=== PATIENT | male | born 1960 | race Caucasian/White ===

== ENCOUNTER → 2017-11-23 12:00 | Outpatient (CLI) | payer OTHER, MEDICAID, SELFPAY ==
--- NOTE | 2017-11-23 | DI.CT.S_ITS ---
PROCEDURE: CT LUMBAR SPINE WO CON INDICATIONS: LUMBAR DISC HERNIATION TECHNIQUE: Noncontrast 3 mm thick sections acquired from the T12 level to the sacrum. Sagittal and coronal reformats were constructed. For radiation dose reduction, the following was used: automated exposure control. COMPARISON: [facility], CT, THORAX WITH CONTRAST, 11/19/2015, 15:58. FINDINGS: Image quality: Excellent. Bones: There is normal bony alignment. No acute vertebral body compression fractures. No suspicious lytic or blastic bony lesions. Central spinal caliber is of normal overall caliber. No pars defects. T12-L1: Minimal loss of disc height. No central canal or foraminal stenosis. L1-L2: Mild loss of disc height and circumferential disc bulge. Large anterior disc osteophyte complex. Mild hypertrophy of ligamentum flavum. No central canal or foraminal stenosis. L2-L3: Mild loss of disc height. There is diffuse posterior disc bulge. Mild bilateral facet arthropathy and hypertrophy of ligamentum flavum. The central canal is mildly narrowed. Mild bilateral foraminal stenosis. L3-L4: Mild to moderate loss of disc height. There is diffuse posterior disc bulge. Mild bilateral facet arthropathy and hypertrophy of ligamentum flavum. The central canal is mildly narrowed. Mild bilateral foraminal stenosis. L4-L5: Moderate to severe loss of disc height and vacuum phenomenon. There is diffuse posterior disc bulge and disc osteophyte complex. Postsurgical changes related to right hemilaminectomy. The central canal is moderately narrowed. Moderate bilateral foraminal stenosis. L5-S1: Mild to moderate to severe loss of disc height and vacuum phenomenon. There is diffuse posterior disc bulge and disc osteophyte complex. The central canal is mildly narrowed. [id number] bilateral foraminal stenosis. Soft tissues: No retroperitoneal masses or hematomas. Visualized aorta is normal in caliber. Moderate aortic and iliac artery calcification. There are scattered colonic diverticula. IMPRESSION: 1. Multilevel degenerative and postsurgical changes as described. 2. Multilevel central canal stenosis as described. 3. Multilevel foraminal stenosis as described. 4. Diverticulosis. 5. Atherosclerosis. Dictated by: Osman Arizmendi M.D. on 11/23/2017 at 14:54 Approved by: Osman Arizmendi M.D. on 11/23/2017 at 15:08
== END ==
PROVIDERS: Visit Provider Neurological Surgery
DX: M51.26 Other intervertebral disc displacement, lumbar region (principal); M51.36 Other intervertebral disc degeneration, lumbar region; M48.061 Spinal stenosis, lumbar region without neurogenic claudication; K57.90 Diverticulosis of intestine, part unspecified, without perforation or abscess without bleeding; I70.0 Atherosclerosis of aorta; I70.209 Unspecified atherosclerosis of native arteries of extremities, unspecified extremity
CPT/HCPCS: 72131

== ENCOUNTER 2020-12-17 18:13 | Emergency (ER) | payer OTHER, SELFPAY ==
--- NOTE | 2020-12-17 18:19 | ED_ITS ---
HPI - General Adult General Chief complaint: Fall Stated complaint: GLF, hit head Time Seen by Provider: 12/17/20 18:17 Source: patient and EMS Mode of arrival: EMS Limitations: other (Intoxication) History of Present Illness HPI narrative: Patient is a 52-year-old male who is brought in by EMS not on a backboard not in a cervical collar for evaluation of injuries he sustained when he fell off of a ladder. 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 He has had issues with this in the past. He has had back problems for many years and this occa sionally happens to him. He did hit his head. Unsure exactly how far that he fell. He did sustain a cut above his left eye. This was covered with a bandage by EMS. Patient reports no other injuries from the event. He does endorse drinking alcohol. EMS reports that upon their arrival he did have a systolic blood pressure in the 90s and was given fluids and that has improved. Related Data Previous Rx's Medication Instructions Recorded cyclobenzaprine 10 mg tablet 10 mg PO TIDP PRN #14 tab 12/15/16 Allergies Allergy/AdvReac Type Severity Reaction Status Date / Time No Known Drug Allergies Allergy Verified 12/17/20 18:24 Review of Systems Constitutional Constitutional: Denies headache(s) Eyes Comments: No change in vision ENT Ears, Nose, Mouth, and Throat: Denies headache(s) Comments: Cut above left eye Cardiovascular Comments: Patient denies chest pain Respiratory Comments: Denies shortness of breath Gastrointestinal Comments: Denies abdominal pain Musculoskeletal Comments: Denies any arm, leg, pelvis discomfort no neck pain Integumentary/Breasts Comments: Cut above left eye, abrasion to left forearm Neurologic Neurologic: Denies headache(s) Psychiatric Psychiatric: Reports system reviewed and no additional complaints, except as documented Hematologic/Lymphatic On Anticoagulants: No Allergic/Immunologic Allergic/Immunologic: Reports system reviewed and no additional complaints, except as documented Patient History Medical History Hemothorax Rib fractures Sciatica Social History lives independently: Yes Smoking Status: Unknown if ever smoked Exam Initial Vital Signs Initial Vital Signs: Vital Signs Temperature 98.6 F 12/17/20 18:20 Pulse Rate 84 12/17/20 18:20 Respiratory Rate 15 12/17/20 18:20 Blood Pressure 122/82 12/17/20 18:20 Pulse Oximetry 97 12/17/20 18:20 Const General: cooperative, comfortable, well developed and No ill appearing HENMT Head: laceration (Above left eye) Nose: external nose normal, No epistaxis and No nasal discharge Face and sinus: normal facial exam Mouth: oral mucosae normal Teeth and gingiva: dentition normal Throat: posterior oropharynx normal Eyes Pupils: PERRL EOM: EOM intact bilaterally Chest Chest: No crepitus and No tenderness Resp Effort & Inspection: normal respiratory effort Auscultation: clear to auscultation bilaterally Cardio Rate: regular rate Rhythm: regular rhythm GI Inspection: normal to inspection Palpation: soft and No tender Back/Spine/Pelvis Cervical Spine: No cervical spinal tenderness Thoracic/Lumbar Spine: No thoracic spinal tenderness and No lumbar spinal tenderness Skin Other: Patient with a 3 cm laceration above the left eye. Patient also with superficial skin abrasions to the left forearm. Neuro General: patient alert, patient awake, moves all extremities and not confused Speech: other (Somewhat slurred speech) Extrem General: normal to inspection Other: Full range of motion of shoulders elbows wrist in the bilateral upper extremities. Pelvis is stable. Bilateral lower extremities unremarkable. Psych Appearance: grossly normal and well kempt Procedures Laceration Repair Laceration 1: Site: face Side (If applicable): left Size (cm): 3 Description: irregular Depth: simple, single layer Local Anesthetic: lidocaine 1% and with bicarb Amount of anesthesia used (mL): 5 Pre-repair: wound explored and deep structures intact Skin layer closed with: other (Chromic) Size (cm): 4-0 Number of sutures: 6 Technique: simple, interrupted Scores GCS Gia coma scale eye opening: Spontaneous Sublimity coma scale verbal response: Orientated Gia coma scale motor response: Obey commands Gia coma scale total score: 15 Nexus Score for C-Spine Focal Neurologic deficit present: No Midline spinal tenderness present: No Altered level of conciousness present: No Intoxication present: Yes Distracting Injury Present: No Nexus Criteria for C-spine: 1 Course Orders Ordered: ED Orders 12/17/20 18:02 Complete Blood Count AUTO DIFF Stat Comprehensive Metabolic Panel Stat Lipase Stat 08/05/21 18:18 CT head/brain wo con Stat 12/17/20 18:20 CT cervical spine wo con Stat 12/17/20 18:21 XR chest 1V Stat Discontinued Medications Bacitracin (Bacitracin Oint 0.9 Gm Pckt) 1 applic TOP NOW ONE Stop: 12/17/20 18:18 Last Admin: 12/17/20 18:40 Dose: 1 applic Documented by: STEPHANIE Diphtheria/Tetanus/Acell Pertussis (Tet,Diph,Pertuss(Acell),Vac/Pf 0.5 Ml Syringe) 0.5 ml IM .ONCE ONE Stop: 12/17/20 18:28 Last Admin: 12/17/20 18:40 Dose: 0.5 ml Documented by: STEPHANIE Lidocaine/Sodium Bicarbonate (Lido 1%/Sod Bicarb 8.4% (10ml) 10 Ml Syringe) 10 ml INJ NOW ONE Stop: 12/17/20 18:18 Last Admin: 12/17/20 18:41 Dose: 10 ml Documented by: STEPHANIE Vital Signs Vital signs: Vital Signs - 8 hr 12/17/20 18:20 12/17/20 20:27 Temperature 98.6 F Pulse Rate 84 105 H Respiratory Rate 15 Blood Pressure 122/82 110/63 Pulse Oximetry 97 97 Medical Decision Making Lab Data Lab results reviewed: Yes I reviewed the patient's lab results. Result diagrams: 12/17/20 18:02 12/17/20 18:02 Labs: Lab Results 12/17/20 12/17/20 Range/Units 18:02 18:02 WBC 6.8 (4.5-11.0) X10^3/uL RBC 3.33 L (4.5-5.9) X10^6/uL Hgb 11.1 L (13.5-17.5) g/dL Hct 33.3 L (41-53) % MCV 100.1 H (80-100) fL MCH 33.2 (26-34) PG MCHC 33.2 (30-36) % RDW 14.5 (11.6-14.8) % Plt Count 70 L (150-400) X10^3/uL Neut % (Auto) 35.1 L (50-75) % Lymph % (Auto) 52.7 H (25-40) % Harney % (Auto) 10.4 (3-14) % Eos % (Auto) 1.0 L (2-4) % Baso % (Auto) 0.8 (0-2) % Neut # (Auto) 2400 (0358-9258) /uL Lymph # (Auto) 3600 (4346-9256) /uL Harney # (Auto) 700 (0-900) /uL Eos # (Auto) 100 (0-450) /uL Baso # (Auto) 100 (0-100) /uL Sodium 139 (137-145) mmol/L Potassium 4.5 (3.4-5.1) mmol/L Chloride 101 (98-107) mmol/L Carbon Dioxide 18 L (22-32) mmol/L BUN 19 (9-20) mg/dL Creatinine 1.14 (0.66-1.25) mg/dL Estimated GFR > 60.0 (>60) mL/min BUN/Creatinine Ratio 16.7 (6-22) Glucose 102 H (70-100) mg/dL Calcium 9.6 (8.4-10.2) mg/dL Total Bilirubin 1.3 (0.2-1.3) mg/dL AST 167 H (17-59) IU/L ALT 67 H (<50) IU/L Alkaline Phosphatase 104 (38-126) U/L Total Protein 7.8 (6.3-8.2) g/dL Albumin 4.8 (3.5-5.0) g/dL Globulin 3.0 (1.7-4.1) g/dL Albumin/Globulin Ratio 1.6 (1.0-2.8) Lipase 358 H (23-300) U/L Imaging Data CT scan - head: Radiologist's Impression: [address] [id number] Scan ReportSigned Patient: Dante Luna JMR#: [id number]: 2Acct:[id number]/Sex: 60 / MDate of Service: 12/17/20Loc: EDAccession Number: [id number] Procedure: CT head/brain wo con Ordering Provider: Min Ramirez D.O. PROCEDURE: CT HEAD/BRAIN WO CON INDICATIONS: fall hit head TECHNIQUE: Noncontrast 4.5 mm thick angled axial sections acquired from the foramen magnum to the vertex, with coronal and sagittal reformats. For radiation dose reduction, the following was used: automated exposure control, adjustment of mA and/or kV according to patient size. COMPARISON: None. FINDINGS: Image quality: Excellent. CSF spaces: Basal cisterns are patent. No extra-axial fluid collections. Ventricles are normal in size and shape. Brain: No midline shift. No intracranial masses or hemorrhage. Clayton-white matter interface is normal. Skull and face: Calvarium and visualized facial bones are intact, without suspicious lesions. Sinuses: Visualized sinuses and mastoids are clear. IMPRESSION: No trauma found. Dictated by: Jarvis Cabrera M.D. on 12/17/2020 at 18:41 Approved by: Jarvis Cabrera M.D. on 12/17/2020 at 18:41 CT - cervical spine: Radiologist's Impression: [address] [id number] Scan ReportSigned Patient: Dante Luna R#: [id number]: 2Acct:[id number]/Sex: 60 / MDate of Service: 12/17/20Loc: EDAccession Number: [id number] Procedure: CT cervical spine wo con Ordering Provider: Min Ramirez D.O. PROCEDURE: CT CERVICAL SPINE WO CON INDICATIONS: fall TECHNIQUE: Noncontrast 3 mm thick sections acquired from the skull base to the T4 level. Sagittal and coronal reformats were then constructed. For radiation dose reduction, the following was used: automated exposure control, adjustment of mA and/or kV according to patient size. COMPARISON: [facility], CT, CT HEAD/BRAIN WO CON, 12/17/2020, 18:22. FINDINGS: Image quality: Reduced by persistent patient motion during image acquisition.. Bones: No fractures or dislocations. Visualized superior ribs are intact. Soft tissues: Prevertebral soft tissues are normal in thickness. No paravertebral hematomas. No apical pneumothoraces. IMPRESSION: No CT evidence of trauma found but quality of visualization is limited by persistent patient motion. Depending on the clinical status follow-up by repeat CT or MR scanning may be warranted with spine stabilization until that time. Please correlate clinically. Chronic moderately severe degenerative disc disease over the middle and lower thirds of the cervical spine is superimposed. Dictated by: Jarvis Cabrera M.D. on 12/17/2020 at 18:49 Approved by: Jarvis Cabrera M.D. on 12/17/2020 at 18:51 Chest x-ray: Radiologist's Impression: [place] [id number] [place] [id number] ReportSigned Patient: Dante Luna JMR#: [id number]: 2Acct:[id number]/Sex: 60 / MDate of Service: 12/17/20Loc: EDAccession Number: [id number] Procedure: XR chest 1V Ordering Provider: Min Ramirez D.O. PROCEDURE: XR CHEST 1V INDICATIONS: fall TECHNIQUE: One view of the chest was acquired. COMPARISON: [facility], CHEST 2 VIEW, 11/19/2015, 14:27. [facility], CHEST 2 VIEW, 11/10/2015, 14:21. FINDINGS: Surgical changes and devices: None. Lungs and pleura: Lungs are clear considering reduced inspiratory volume and body habitus.. No pleural effusions or pneumothorax. Mediastinum: Mediastinal contours appear normal. Heart size is normal. Bones and chest wall: No suspicious bony lesions. Overlying soft tissues appear unremarkable. IMPRESSION: No trauma found. Reduced inspiratory volume crowds the bronchovascular markings but no pneumonia or pulmonary contusion is seen. Dictated by: Jarvis Cabrera M.D. on 12/17/2020 at 18:46 Approved by: Jarvis Cabrera M.D. on 12/17/2020 at 18:47 MDM Narrative Medical decision making narrative: A cervical collar was placed the upon arrival secondary to his obvious intoxication. His radiologic studies were subsequently unremarkable. The abrasions on his left forearm the no intervention here in the emergency department. The cut above his left eye was closed as described above. No other injuries were reported by the patient or found on the exam. Patient was given care instructions and return precautions. He expressed understanding and agreement. Discharge Plan Departure Patient Disposition: Home Clinical Impression: Fall from ladder, Laceration of forehead, Abrasion of skin, Alcohol intoxication, Injury of eye, contusion Instructions: Trauma, DI for Laceration Repair Activity Restrictions/Additional Instructions: No driving for the next 24 hours or in the future if you drink alcohol. The stitches that were placed above her left eye are absorbable and should come out within the next 7-10 days. Until then you can shower like normal. You can use soap and water like normal. You can put antibiotic ointment over the area. Also recommend putting antibiotic ointment over the other skin abrasions that you have. I would expect that you develop a black eye over the next couple days as well. Cool compresses over the area will help with this. If you develop any new or worsening symptoms please return to the emergency department for further evaluation. Prescriptions: No Action cyclobenzaprine 10 MG tablet 10 mg PO TIDP PRNQty: 14 RF: 0
[2020-12-17 18:20] VITALS: BP 122/82; PULSE 84; RESP 15; TEMP 37; O2SAT 97; BMI 28.7
[2020-12-17 18:35] LABS: Add Manual Diff / Slide Review NO; Basophils Absolute Auto 100 /uL (0-100); Basophils Percent Auto 0.8 % (0-2); Eosinophils Absolute Auto 100 /uL (0-450); Hematocrit 33.3 % (41-53); Hemoglobin 11.1 g/dL (13.5-17.5); Lymphocytes Absolute Auto 3600 /uL (1100-4500); Lymphocytes Percent Auto 52.7 % (25-40); Mean Corpuscular HGB Conc 33.2 % (30-36); Mean Corpuscular Hemoglobin 33.2 PG (26-34); Mean Corpuscular Volume 100.1 fL (80-100); Monocytes Absolute Auto 700 /uL (0-900); Monocytes Percent Auto 10.4 % (3-14); Neutrophils Absolute Auto 2400 /uL (1500-7000); Neutrophils Percent Auto 35.1 % (50-75); Platelet Count 70 X10^3/uL (150-400); Red Blood Cell Count 3.33 X10^6/uL (4.5-5.9); Red Cell Distribution Width 14.5 % (11.6-14.8); White Blood Cell Count 6.8 X10^3/uL (4.5-11.0)
[2020-12-17 18:40] LABS: Alanine Aminotransferase 67 IU/L (<50); Albumin 4.8 g/dL (3.5-5.0); Albumin Globulin Ratio 1.6 (1.0-2.8); Alkaline Phosphatase 104 U/L (38-126); Aspartate Aminotransferase 167 IU/L (17-59); BUN Creatinine Ratio 16.7 (6-22); Bilirubin Total 1.3 mg/dL (0.2-1.3); Blood Urea Nitrogen 19 mg/dL (9-20); Calcium 9.6 mg/dL (8.4-10.2); Carbon Dioxide 18 mmol/L (22-32); Chloride 101 mmol/L (98-107); Estimated Glomerular Filt Rate > 60.0 mL/min (>60); Glucose 102 mg/dL (70-100); HEMOLYSIS < 15 (0-50); Lipase 358 U/L (23-300); Potassium 4.5 mmol/L (3.4-5.1); Sodium 139 mmol/L (137-145); Total Protein 7.8 g/dL (6.3-8.2)
[2020-12-17] MEDS: BACITRACIN OINT 0.9 GM PCKT 1 APPLIC TOP (18:40)
[2020-12-17] MEDS: TET,DIPH,PERTUSS(ACELL),VAC/PF 0.5 ML SYRINGE IM (18:40)
[2020-12-17] MEDS: LIDO 1%/SOD BICARB 8.4% (10ML) 10 ML SYRINGE INJ (18:41)
[2020-12-17 20:27] VITALS: BP 110/63; PULSE 105; O2SAT 97
== END 2020-12-17 20:28 | disposition home or self-care (01) ==
PROVIDERS: Emergency Provider Emergency Medicine
DX: S01.81XA Laceration without foreign body of other part of head, initial encounter (principal); S50.812A Abrasion of left forearm, initial encounter; W11.XXXA Fall on and from ladder, initial encounter; Z23 Encounter for immunization
CPT/HCPCS: 12013; 70450; 71045; 72125; 80053; 83690; 85025; 90471; 99284; 90715

== ENCOUNTER 2021-07-21 16:00 | Outpatient (RCR) | payer OTHER, SELFPAY ==
--- NOTE | 2021-05-18 17:25 | PT.OIE ---
Current Diagnoses Lesion of sciatic nerve, bilateral lower limbs (05/18/21) Pain in right hip (05/18/21) Pain in left hip (05/18/21) Stiffness of right hip, not elsewhere classified (05/18/21) Stiffness of left hip, not elsewhere classified (05/18/21) Stiffness of other specified joint, not elsewhere classified (05/18/21) Intervertebral disc disorders with radiculopathy, lumbar region (05/18/21) Past Medical History (Last Reviewed 12/18/20 @ 02:21 by Min Ramirez DO) Hemothorax Rib fractures Sciatica Visit Care Team Role Provider Type Olga Lidia Hernández PA-C Attending Provider Non-Staff Primary Care Provider Referring Provider Specialty: Medical Address: [address] [place] [address], [id number] Email: Physical Therapy Initial Evaluation PT-OP-A Visit Information Start: 05/18/21 16:05 Freq: Status: Active Protocol: Document 05/18/21 15:15 DCW (Rec: 05/18/21 16:06 DCW [id number]) Out-Patient Physical Therapy Visit Information Visit Information Visit Type Initial Evaluation Visit Start Time 15:15 Visit Stop Time 16:00 Total Visit Minutes 45 Visit Number 1 Number of TUG CAPTAIN Visits 0 Evaluation Information Evaluation Date 05/18/21 PT-OP-B Current Condition Start: 05/18/21 16:05 Freq: Status: Active Protocol: Document 05/18/21 15:15 DCW (Rec: 05/18/21 17:25 DCW [id number]) Current Condition History of Current Condition Onset Date ~5 year history Current Complaints Low back pain, posterior hip pain, radicular leg pain History of Current Condition Pt is a 61 year old male presenting to skilled therapy with complaints of worsening radicular pain in his legs, right significantly worse than left. Pain began in earnest five years ago, but has been worsening for the past two years. Pt has a very complicated history of interventions for his low back , including a lamiectomy, and the implantation, and subsequent removal, of a spinal cord stimulator. Pt's SO notes the electrodes had begun to protrude through his skin, and so after having it put in during November,, it was removed June,. Pt notes there was minimal benefit from it anyway. Pt notes he has had three injections with minimal benefit, and that his laminectimy also provided no relief. Pt presents with extreme pain and difficulty with mobility, needing to use his SO for support during gait . Notes that she must help him most days getting out of bed and dressing because the pain has been so bad. Pt notes he used to work up in the [place], and his pain is just an accumulation of years worth of being hard on his body. Pain can be as high as 7-9/10 when up walking around. Notes he was on Oxy for a long time, I finally stopped taking it, because they weren't doing any good. Pt's SO reports pt's sleep is frequently greatly disturbed due to pain, pt has to change positions every 30- 40 minutes. Treatment Goals Patient/Caregiver Goals Decrease pain, improve ability to walk without assistance from SO, improve ability to sleep PT-OP-C Subjective Start: 05/18/21 16:05 Freq: Status: Active Protocol: Document 05/18/21 15:15 DCW (Rec: 05/18/21 17:25 DCW [id number]) OP-PT Subjective Patient Comments Patient Comments I've seen a bunch of surgeons recently, and they've all said they couldn't so anything else for me, so this is kind of a last-ditch effort. Patient Reported Progress Worse Patient Questionnaires Oswestry Low Back Index Oswestry Score 34/50 = 68% Oswestry Impairment 60 to 79% Impaired (Score 60- 79) OP-PT Pain Assessment Pain Assessment Grid Paper Pain Assessment Grid Completed Yes Location Right Leg Pain Location Details Radicular pain from posterior hip down through entire right leg Intensity 9 Description Aching,Burning,Cramping, Shooting,Throbbing Pain Aggravating Factors Standing,Walking Pain Alleviating Factors None Pain Behaviors Pain Behaviors Facial Grimacing,Guarding, Restlessness,Wincing PT-OP-F Manual Assessment Start: 05/18/21 16:05 Freq: Status: Active Protocol: Document 05/18/21 15:15 DCW (Rec: 05/18/21 17:25 DCW [id number]) Manual Assessments Soft Tissue Assessment Soft Tissue Mobility Assessment Moderate tone with tenderness to palpation 2/4: pain with wincing along bilateral lumbar paraspinals, bilateral QL Severe tone with tenderness to palpation 3/4: wincing and withdraw along bilateral piriformis, R>L Joint Mobility Assessment Joint Mobility Assessment Significant limitations to lumbar mobility secondary to multiple surgical interventions PT-OP-J Posture/Palpation/Skin Start: 05/18/21 16:05 Freq: Status: Active Protocol: Document 05/18/21 15:15 DCW (Rec: 05/18/21 17:25 DCW [id number]) Posture Evaluation Position Standing Evaluation View Lateral L-Spine Posture Flattened,Decreased Lordosis Pelvis Posture Posterior Tilted Weight Distribution Decreased Wt.Bear on (R) PT-OP-K Range of Motion Start: 05/18/21 16:05 Freq: Status: Active Protocol: Document 05/18/21 15:15 DCW (Rec: 05/18/21 17:25 DCW [id number]) Lumbar Spine Range of Motion Lumbar Spine Active Degrees Testing Position Sitting Flexion 0 Extension 0 ROM Limitations Bony Restriction,Muscle Tone, Pain PT-OP-L Special Tests Start: 05/18/21 16:05 Freq: Status: Active Protocol: Document 05/18/21 15:15 DCW (Rec: 05/18/21 17:25 DCW [id number]) Special Tests Lumbar Spine Special Tests Lateral SI compression Test Results Negative OLGA LIDIA Test Results Negative Straight Leg Raise Test Results Hamstring tightness, 45? bilaterally Slump Test Results C/o Hamstring tightness bilaterally Manual Traction Test Results Maybe mild improvement A-P Shearing Test Results Negative Hip Special Tests Piriformis Test Results Strongly positive R>L PT-OP-Q Treatments Start: 05/18/21 16:05 Freq: Status: Active Protocol: Document 05/18/21 15:15 DCW (Rec: 05/18/21 16:07 DCW [id number]) Therapeutic Exercises Supine Exercises 1 Supine Exercise Name Piriformis stretch - Figure-4, knee to opposite shoulder Side right Sitting Exercises 1 Sitting Exercise Name Piriformis stretch - Seated figure-4 Side right PT-OP-T Assessment and Plan Start: 05/18/21 16:05 Freq: Status: Active Protocol: Document 05/18/21 15:15 DCW (Rec: 05/18/21 17:25 DCW [id number]) Physical Therapy Assessment Rehab Potential Rehabilitation Potential Fair Evaluation Complexity Number of Personal Factors/Comorbidities 3 or More Number of Body Systems Impaired 3 Clinical Presentation at Evaluation Unstable Impairments Impairments Activity Tolerance,Functional Activities,Functional Mobility ,Pain,Posture,ROM,Soft Tissue Mobility,Strength,Tone Goals Three Impairment Pt requires support from SO during ambulation Longterm Goal (LTG) Pt to ambulate >800' during 6MWT without assistance LTG Duration 08/16/21 Two Impairment Significant sleep disturbances due to pain [employer] Goal (LTG) Pt to report waking up only 2x /night for three consecutive nights due to back/leg pain LTG Duration 08/16/21 One Impairment Pt does not have an appropriate home exercise program Short Term Goal (STG) Pt to be independent and compliant with an appropriate HEP STG Duration 06/18/21 Assessment Summary Assessment Pt presents with significant limitations in function secondary to low back pain and radicular symptoms. 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 After getting some brief manual pressure on his right piriformis during assessment and learning some gentle stretches, pt noted that he could feel some improvement already. Physical therapy may assist in decreasing some of his radicular symptoms to the point that his function improves, and then focus more on lumbar mobility and core stability to improve daily function. Physical Therapy Plan Frequency and Duration Frequency of Treatment 2x/Week Duration of Treatment Three months Plan of Care Start Date 05/18/21 Plan of Care End Date 08/16/21 Therapeutic Interventions Therapeutic Interventions Aquatic Therapy,Gait Training, Home Exercise Program,Joint Mobilizations,Manual Therapy, Neuromuscular Re-education, Patient/Caregiver Education, Self-Care/Home Management,Soft Tissue Mobilization, Therapeutic Activities, Therapeutic Exercises Modalities Cold Pack/Ice Massage,Electric Stimulation,Hot Packs, Traction- Mechanical Next Visit Focus/Plan Next Note Type Treatment Note Next Visit Plan STM, Stretching, E-stim, trunk mobility
--- NOTE | 2021-05-18 17:26 | PT.OPPOC ---
Physical, Occupational & Speech Therapy At [facility] Current Diagnoses Lesion of sciatic nerve, bilateral lower limbs (05/18/21) Pain in right hip (05/18/21) Pain in left hip (05/18/21) Stiffness of right hip, not elsewhere classified (05/18/21) Stiffness of left hip, not elsewhere classified (05/18/21) Stiffness of other specified joint, not elsewhere classified (05/18/21) Intervertebral disc disorders with radiculopathy, lumbar region (05/18/21) Visit Care Team Role Provider Type Olga Lidia Hernández PA-C Attending Provider Non-Staff Primary Care Provider Referring Provider Specialty: Medical Address: [address] [place] [address], [id number] Email: Plan Of Care PT-OP-T Assessment and Plan Start: 05/18/21 16:05 Freq: Status: Active Protocol: Document 05/18/21 15:15 DCW (Rec: 05/18/21 17:25 DCW [id number]) Physical Therapy Assessment Rehab Potential Rehabilitation Potential Fair Evaluation Complexity Number of Personal Factors/Comorbidities 3 or More Number of Body Systems Impaired 3 Clinical Presentation at Evaluation Unstable Impairments Impairments Activity Tolerance,Functional Activities,Functional Mobility ,Pain,Posture,ROM,Soft Tissue Mobility,Strength,Tone Goals Three Impairment Pt requires support from SO during ambulation Executive Assistant Goal (LTG) Pt to ambulate >800' during 6MWT without assistance LTG Duration 08/16/21 Two Impairment Significant sleep disturbances due to pain Usp Goal (LTG) Pt to report waking up only 2x /night for three consecutive nights due to back/leg pain LTG Duration 08/16/21 One Impairment Pt does not have an appropriate home exercise program Short Term Goal (STG) Pt to be independent and compliant with an appropriate HEP STG Duration 06/18/21 Assessment Summary Assessment Pt presents with significant limitations in function secondary to low back pain and radicular symptoms. 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 After getting some brief manual pressure on his right piriformis during assessment and learning some gentle stretches, pt noted that he could feel some improvement already. Physical therapy may assist in decreasing some of his radicular symptoms to the point that his function improves, and then focus more on lumbar mobility and core stability to improve daily function. Physical Therapy Plan Frequency and Duration Frequency of Treatment 2x/Week Duration of Treatment Three months Plan of Care Start Date 05/18/21 Plan of Care End Date 08/16/21 Therapeutic Interventions Therapeutic Interventions Aquatic Therapy,Gait Training, Home Exercise Program,Joint Mobilizations,Manual Therapy, Neuromuscular Re-education, Patient/Caregiver Education, Self-Care/Home Management,Soft Tissue Mobilization, Therapeutic Activities, Therapeutic Exercises Modalities Cold Pack/Ice Massage,Electric Stimulation,Hot Packs, Traction- Mechanical Next Visit Focus/Plan Next Note Type Treatment Note Next Visit Plan STM, Stretching, E-stim, trunk mobility Plan of Care Dates Plan of Care Start Date 05/18/21 Plan of Care End Date 08/16/21 Electronically Signed by: Onel Booker, SHANE 05/18/21 [id number] Please Sign and Return: I have reviewed this Plan of Care and certify that the skilled therapy services above are required to meet the patient?s needs. Physician Signature Date Printed Name and Credentials Clinical Instructor Signature Printed Name and Credentials
--- NOTE | 2021-05-20 16:03 | PT.OTN ---
Current Diagnoses Lesion of sciatic nerve, bilateral lower limbs (05/20/21) Pain in right hip (05/20/21) Pain in left hip (05/20/21) Stiffness of right hip, not elsewhere classified (05/20/21) Stiffness of left hip, not elsewhere classified (05/20/21) Stiffness of other specified joint, not elsewhere classified (05/20/21) Intervertebral disc disorders with radiculopathy, lumbar region (05/20/21) Physical Therapy Treatment Note PT-OP-A Visit Information Start: 05/18/21 16:05 Freq: Status: Active Protocol: Document 05/20/21 15:15 DCW (Rec: 05/20/21 16:02 DCW [id number]) Out-Patient Physical Therapy Visit Information Visit Information Visit Type Treatment Note Visit Start Time 15:15 Visit Stop Time 16:00 Total Visit Minutes 45 Visit Number 2 Number of AUTOMATIC BEAM WARPER TENDER Visits 0 Evaluation Information Evaluation Date 05/18/21 PT-OP-B Current Condition Start: 05/18/21 16:05 Freq: Status: Active Protocol: Document 05/18/21 15:15 DCW (Rec: 05/18/21 17:25 DCW [id number]) Current Condition History of Current Condition Onset Date ~5 year history Current Complaints Low back pain, posterior hip pain, radicular leg pain History of Current Condition Pt is a 61 year old male presenting to skilled therapy with complaints of worsening radicular pain in his legs, right significantly worse than left. Pain began in earnest five years ago, but has been worsening for the past two years. Pt has a very complicated history of interventions for his low back , including a lamiectomy, and the implantation, and subsequent removal, of a spinal cord stimulator. Pt's SO notes the electrodes had begun to protrude through his skin, and so after having it put in during November,, it was removed June,. Pt notes there was minimal benefit from it anyway. Pt notes he has had three injections with minimal benefit, and that his laminectimy also provided no relief. Pt presents with extreme pain and difficulty with mobility, needing to use his SO for support during gait . Notes that she must help him most days getting out of bed and dressing because the pain has been so bad. Pt notes he used to [place], and his pain is just an accumulation of years worth of being hard on his body. Pain can be as high as 7-9/10 when up walking around. Notes he was on Oxy for a long time, I finally stopped taking it, because they weren't doing any good. Pt's SO reports pt's sleep is frequently greatly disturbed due to pain, pt has to change positions every 30- 40 minutes. Treatment Goals Patient/Caregiver Goals Decrease pain, improve ability to walk without assistance from SO, improve ability to sleep PT-OP-C Subjective Start: 05/18/21 16:05 Freq: Status: Active Protocol: Document 05/20/21 15:15 DCW (Rec: 05/20/21 16:02 DCW [id number]) OP-PT Subjective Patient Comments Patient Comments Those exercises help a little bit. PT-OP-F Manual Assessment Start: 05/18/21 16:05 Freq: Status: Active Protocol: Document 05/18/21 15:15 DCW (Rec: 05/18/21 17:25 DCW [id number]) Manual Assessments Soft Tissue Assessment Soft Tissue Mobility Assessment Moderate tone with tenderness to palpation 2/4: pain with wincing along bilateral lumbar paraspinals, bilateral QL Severe tone with tenderness to palpation 3/4: wincing and withdraw along bilateral piriformis, R>L Joint Mobility Assessment Joint Mobility Assessment Significant limitations to lumbar mobility secondary to multiple surgical interventions PT-OP-J Posture/Palpation/Skin Start: 05/18/21 16:05 Freq: Status: Active Protocol: Document 05/18/21 15:15 DCW (Rec: 05/18/21 17:25 DCW [id number]) Posture Evaluation Position Standing Evaluation View Lateral L-Spine Posture Flattened,Decreased Lordosis Pelvis Posture Posterior Tilted Weight Distribution Decreased Wt.Bear on (R) PT-OP-K Range of Motion Start: 05/18/21 16:05 Freq: Status: Active Protocol: Document 05/18/21 15:15 DCW (Rec: 05/18/21 17:25 DCW [id number]) Lumbar Spine Range of Motion Lumbar Spine Active Degrees Testing Position Sitting Flexion 0 Extension 0 ROM Limitations Bony Restriction,Muscle Tone, Pain PT-OP-L Special Tests Start: 05/18/21 16:05 Freq: Status: Active Protocol: Document 05/18/21 15:15 DCW (Rec: 05/18/21 17:25 [facility] [id number]) Special Tests Lumbar Spine Special Tests Lateral SI compression Test Results Negative OLGA LIDIA Test Results Negative Straight Leg Raise Test Results Hamstring tightness, 45? bilaterally Slump Test Results C/o Hamstring tightness bilaterally Manual Traction Test Results Maybe mild improvement A-P Shearing Test Results Negative Hip Special Tests Piriformis Test Results Strongly positive R>L PT-OP-Q Treatments Start: 05/18/21 16:05 Freq: Status: Active Protocol: Document 05/20/21 15:15 DCW (Rec: 05/20/21 16:02 [facility] [id number]) Gym Equipment Therapeutic Ball 1 Exercise Details Low Trunk Rotations Ball Size/Color Red - 55 cm Body Position Supine Therapeutic Exercises Supine Exercises 3 Supine Exercise Name Bridging Reps/Minutes x10 2 Supine Exercise Name Hamstring stretch Side bilateral 1 Supine Exercise Name Piriformis stretch - Figure-4, knee to opposite shoulder Side bilateral Manual Therapy Treatment Soft Tissue Mobilization 1 Body Location B Piriformis, QL Mobilization Type Strumming,Sustained Pressure, Trigger Point Release Intensity/Depth Deep Body Position Sidelying Self-Care/Home Management Treatment Education Caregiver Education Education for SO to perform STM to piriformis, Education for pt to use Tennis ball for self-STM PT-OP-T Assessment and Plan Start: 05/18/21 16:05 Freq: Status: Active Protocol: Document 05/20/21 15:15 DCW (Rec: 05/20/21 16:02 [facility] [id number]) Physical Therapy Assessment Impairments Impairments Activity Tolerance,Functional Activities,Functional Mobility ,Pain,Posture,ROM,Soft Tissue Mobility,Strength,Tone Goals Three Impairment Pt requires support from SO during ambulation Freight Brake Operator Goal (LTG) Pt to ambulate >800' during 6MWT without assistance LTG Duration 08/16/21 Two Impairment Significant sleep disturbances due to pain Freight Brake Operator Goal (LTG) Pt to report waking up only 2x /night for three consecutive nights due to back/leg pain LTG Duration 08/16/21 One Impairment Pt does not have an appropriate home exercise program Short Term Goal (STG) Pt to be independent and compliant with an appropriate HEP STG Duration 06/18/21 Assessment Summary Assessment Pt tolerated treatment very well today. Noticably less tone and restricted movement with stretching, pt demonstrated improved ability to perform supine->sit->stand transfer following stretching and STM, and was walking around clinic without assistance from SO. Still exhibits minimal trunk rotation and wide MONICA during gait. Physical Therapy Plan Frequency and Duration Frequency of Treatment 2x/Week Duration of Treatment Three months Plan of Care Start Date 05/18/21 Plan of Care End Date 08/16/21 Therapeutic Interventions Therapeutic Interventions Aquatic Therapy,Gait Training, Home Exercise Program,Joint Mobilizations,Manual Therapy, Neuromuscular Re-education, Patient/Caregiver Education, Self-Care/Home Management,Soft Tissue Mobilization, Therapeutic Activities, Therapeutic Exercises Modalities Cold Pack/Ice Massage,Electric Stimulation,Hot Packs, Traction- Mechanical Next Visit Focus/Plan Next Note Type Treatment Note Next Visit Plan STM, Stretching, E-stim, trunk mobility
--- NOTE | 2021-05-24 16:40 | PT.OTN ---
Current Diagnoses Lesion of sciatic nerve, bilateral lower limbs (05/24/21) Pain in right hip (05/24/21) Pain in left hip (05/24/21) Stiffness of right hip, not elsewhere classified (05/24/21) Stiffness of left hip, not elsewhere classified (05/24/21) Stiffness of other specified joint, not elsewhere classified (05/24/21) Intervertebral disc disorders with radiculopathy, lumbar region (05/24/21) Physical Therapy Treatment Note PT-OP-A Visit Information Start: 05/18/21 16:05 Freq: Status: Active Protocol: Document 05/24/21 16:00 DCW (Rec: 05/24/21 16:39 DCW [id number]) Out-Patient Physical Therapy Visit Information Visit Information Visit Type Treatment Note Visit Start Time 16:00 Visit Stop Time 16:55 Total Visit Minutes 55 Visit Number 3 Number of DRIVER MEDIC Visits 0 Evaluation Information Evaluation Date 05/18/21 PT-OP-B Current Condition Start: 05/18/21 16:05 Freq: Status: Active Protocol: Document 05/18/21 15:15 DCW (Rec: 05/18/21 17:25 DCW [id number]) Current Condition History of Current Condition Onset Date ~5 year history Current Complaints Low back pain, posterior hip pain, radicular leg pain History of Current Condition Pt is a 61 year old male presenting to skilled therapy with complaints of worsening radicular pain in his legs, right significantly worse than left. Pain began in earnest five years ago, but has been worsening for the past two years. Pt has a very complicated history of interventions for his low back , including a lamiectomy, and the implantation, and subsequent removal, of a spinal cord stimulator. Pt's SO notes the electrodes had begun to protrude through his skin, and so after having it put in during November,, it was removed June,. Pt notes there was minimal benefit from it anyway. Pt notes he has had three injections with minimal benefit, and that his laminectimy also provided no relief. Pt presents with extreme pain and difficulty with mobility, needing to use his SO for support during gait . Notes that she must help him most days getting out of bed and dressing because the pain has been so bad. Pt notes he used to work [place], and his pain is just an accumulation of years worth of being hard on his body. Pain can be as high as 7-9/10 when up walking around. Notes he was on Oxy for a long time, I finally stopped taking it, because they weren't doing any good. Pt's SO reports pt's sleep is frequently greatly disturbed due to pain, pt has to change positions every 30- 40 minutes. Treatment Goals Patient/Caregiver Goals Decrease pain, improve ability to walk without assistance from SO, improve ability to sleep PT-OP-C Subjective Start: 05/18/21 16:05 Freq: Status: Active Protocol: Document 05/24/21 16:00 DCW (Rec: 05/24/21 16:39 DCW [id number]) OP-PT Subjective Patient Comments Patient Comments It has been better at times. SO notes he has difficulty at night PT-OP-F Manual Assessment Start: 05/18/21 16:05 Freq: Status: Active Protocol: Document 05/18/21 15:15 DCW (Rec: 05/18/21 17:25 DCW [id number]) Manual Assessments Soft Tissue Assessment Soft Tissue Mobility Assessment Moderate tone with tenderness to palpation 2/4: pain with wincing along bilateral lumbar paraspinals, bilateral QL Severe tone with tenderness to palpation 3/4: wincing and withdraw along bilateral piriformis, R>L Joint Mobility Assessment Joint Mobility Assessment Significant limitations to lumbar mobility secondary to multiple surgical interventions PT-OP-J Posture/Palpation/Skin Start: 05/18/21 16:05 Freq: Status: Active Protocol: Document 05/18/21 15:15 DCW (Rec: 05/18/21 17:25 DCW [id number]) Posture Evaluation Position Standing Evaluation View Lateral L-Spine Posture Flattened,Decreased Lordosis Pelvis Posture Posterior Tilted Weight Distribution Decreased Wt.Bear on (R) PT-OP-K Range of Motion Start: 05/18/21 16:05 Freq: Status: Active Protocol: Document 05/18/21 15:15 DCW (Rec: 05/18/21 17:25 DCW [id number]) Lumbar Spine Range of Motion Lumbar Spine Active Degrees Testing Position Sitting Flexion 0 Extension 0 ROM Limitations Bony Restriction,Muscle Tone, Pain PT-OP-L Special Tests Start: 05/18/21 16:05 Freq: Status: Active Protocol: Document 05/18/21 15:15 DCW (Rec: 05/18/21 17:25 DCW [id number]) Special Tests Lumbar Spine Special Tests Lateral SI compression Test Results Negative OLGA LIDIA Test Results Negative Straight Leg Raise Test Results Hamstring tightness, 45? bilaterally Slump Test Results C/o Hamstring tightness bilaterally Manual Traction Test Results Maybe mild improvement A-P Shearing Test Results Negative Hip Special Tests Piriformis Test Results Strongly positive R>L PT-OP-Q Treatments Start: 05/18/21 16:05 Freq: Status: Active Protocol: Document 05/24/21 16:00 DCW (Rec: 05/24/21 16:39 DCW [id number]) Therapeutic Exercises Supine Exercises 2 Supine Exercise Name Hamstring stretch Side bilateral 1 Supine Exercise Name Piriformis stretch - Figure-4, knee to opposite shoulder Side bilateral Manual Therapy Treatment Soft Tissue Mobilization 1 Body Location B Piriformis, QL Mobilization Type Strumming,Sustained Pressure, Trigger Point Release Intensity/Depth Deep Body Position Sidelying PT-OP-R Modalities Start: 05/18/21 16:05 Freq: Status: Active Protocol: Document 05/24/21 16:00 DCW (Rec: 05/24/21 16:40 DCW [id number]) Electric Stimulation Electric Stimulation Interferential Current (IFC) Body Location Low back Duration (Minutes) 15 Intensity 29 Cycle Continuous Patient Position Hooklying Combined With Heat/Cold Hot Pack PT-OP-T Assessment and Plan Start: 05/18/21 16:05 Freq: Status: Active Protocol: Document 05/24/21 16:00 DCW (Rec: 05/24/21 16:39 DC [id number]) Physical Therapy Assessment Impairments Impairments Activity Tolerance,Functional Activities,Functional Mobility ,Pain,Posture,ROM,Soft Tissue Mobility,Strength,Tone Goals Three Impairment Pt requires support from SO during ambulation Halfway Goal (LTG) Pt to ambulate >800' during 6MWT without assistance LTG Duration 08/16/21 Two Impairment Significant sleep disturbances due to pain Scientific Informatics Analyst Goal (LTG) Pt to report waking up only 2x /night for three consecutive nights due to back/leg pain LTG Duration 08/16/21 One Impairment Pt does not have an appropriate home exercise program Short Term Goal (STG) Pt to be independent and compliant with an appropriate HEP STG Duration 06/18/21 Assessment Summary Assessment Trial of e-stim today, pt reports success with it in the past. Still very tight and stiff with STM and stretching, but does appear to be loosening up a bit. Physical Therapy Plan Frequency and Duration Frequency of Treatment 2x/Week Duration of Treatment Three months Plan of Care Start Date 05/18/21 Plan of Care End Date 08/16/21 Therapeutic Interventions Therapeutic Interventions Aquatic Therapy,Gait Training, Home Exercise Program,Joint Mobilizations,Manual Therapy, Neuromuscular Re-education, Patient/Caregiver Education, Self-Care/Home Management,Soft Tissue Mobilization, Therapeutic Activities, Therapeutic Exercises Modalities Cold Pack/Ice Massage,Electric Stimulation,Hot Packs, Traction- Mechanical Next Visit Focus/Plan Next Note Type Treatment Note Next Visit Plan STM, Stretching, E-stim, trunk mobility
--- NOTE | 2021-05-31 16:33 | PT.OTN ---
Current Diagnoses Lesion of sciatic nerve, bilateral lower limbs (05/31/21) Pain in right hip (05/31/21) Pain in left hip (05/31/21) Stiffness of right hip, not elsewhere classified (05/31/21) Stiffness of left hip, not elsewhere classified (05/31/21) Stiffness of other specified joint, not elsewhere classified (05/31/21) Intervertebral disc disorders with radiculopathy, lumbar region (05/31/21) Physical Therapy Treatment Note PT-OP-A Visit Information Start: 05/18/21 16:05 Freq: Status: Active Protocol: Document 05/31/21 16:00 DCW (Rec: 05/31/21 16:33 DCW [id number]) Out-Patient Physical Therapy Visit Information Visit Information Visit Type Treatment Note Visit Start Time 16:00 Visit Stop Time 16:30 Total Visit Minutes 30 Visit Number 4 Number of CENTRAL STATION OPERATOR Visits 0 Evaluation Information Evaluation Date 05/18/21 PT-OP-B Current Condition Start: 05/18/21 16:05 Freq: Status: Active Protocol: Document 05/18/21 15:15 DCW (Rec: 05/18/21 17:25 DCW [id number]) Current Condition History of Current Condition Onset Date ~5 year history Current Complaints Low back pain, posterior hip pain, radicular leg pain History of Current Condition Pt is a 61 year old male presenting to skilled therapy with complaints of worsening radicular pain in his legs, right significantly worse than left. Pain began in earnest five years ago, but has been worsening for the past two years. Pt has a very complicated history of interventions for his low back , including a lamiectomy, and the implantation, and subsequent removal, of a spinal cord stimulator. Pt's SO notes the electrodes had begun to protrude through his skin, and so after having it put in during November,, it was removed June,. Pt notes there was minimal benefit from it anyway. Pt notes he has had three injections with minimal benefit, and that his laminectimy also provided no relief. Pt presents with extreme pain and difficulty with mobility, needing to use his SO for support during gait . Notes that she must help him most days getting out of bed and dressing because the pain has been so bad. Pt notes he used to [place], and his pain is just an accumulation of years worth of being hard on his body. Pain can be as high as 7-9/10 when up walking around. Notes he was on Oxy for a long time, I finally stopped taking it, because they weren't doing any good. Pt's SO reports pt's sleep is frequently greatly disturbed due to pain, pt has to change positions every 30- 40 minutes. Treatment Goals Patient/Caregiver Goals Decrease pain, improve ability to walk without assistance from SO, improve ability to sleep PT-OP-C Subjective Start: 05/18/21 16:05 Freq: Status: Active Protocol: Document 05/31/21 16:00 DCW (Rec: 05/31/21 16:33 DCW [id number]) OP-PT Subjective Patient Comments Patient Comments SO notes low back exercises were very painful, and the e- stim didn't go well either. Feels that prior sessions with the focus only on STM were much more successful. PT-OP-F Manual Assessment Start: 05/18/21 16:05 Freq: Status: Active Protocol: Document 05/18/21 15:15 DCW (Rec: 05/18/21 17:25 DCW [id number]) Manual Assessments Soft Tissue Assessment Soft Tissue Mobility Assessment Moderate tone with tenderness to palpation 2/4: pain with wincing along bilateral lumbar paraspinals, bilateral QL Severe tone with tenderness to palpation 3/4: wincing and withdraw along bilateral piriformis, R>L Joint Mobility Assessment Joint Mobility Assessment Significant limitations to lumbar mobility secondary to multiple surgical interventions PT-OP-J Posture/Palpation/Skin Start: 05/18/21 16:05 Freq: Status: Active Protocol: Document 05/18/21 15:15 DCW (Rec: 05/18/21 17:25 DCW [id number]) Posture Evaluation Position Standing Evaluation View Lateral L-Spine Posture Flattened,Decreased Lordosis Pelvis Posture Posterior Tilted Weight Distribution Decreased Wt.Bear on (R) PT-OP-K Range of Motion Start: 05/18/21 16:05 Freq: Status: Active Protocol: Document 05/18/21 15:15 DCW (Rec: 05/18/21 17:25 DCW [id number]) Lumbar Spine Range of Motion Lumbar Spine Active Degrees Testing Position Sitting Flexion 0 Extension 0 ROM Limitations Bony Restriction,Muscle Tone, Pain PT-OP-L Special Tests Start: 05/18/21 16:05 Freq: Status: Active Protocol: Document 05/18/21 15:15 DCW (Rec: 05/18/21 17:25 DCW [id number]) Special Tests Lumbar Spine Special Tests Lateral SI compression Test Results Negative OLGA LIDIA Test Results Negative Straight Leg Raise Test Results Hamstring tightness, 45? bilaterally Slump Test Results C/o Hamstring tightness bilaterally Manual Traction Test Results Maybe mild improvement A-P Shearing Test Results Negative Hip Special Tests Piriformis Test Results Strongly positive R>L PT-OP-Q Treatments Start: 05/18/21 16:05 Freq: Status: Active Protocol: Document 05/31/21 16:00 DCW (Rec: 05/31/21 16:33 DCW [id number]) Therapeutic Exercises Supine Exercises 2 Supine Exercise Name Hamstring stretch Side bilateral 1 Supine Exercise Name Piriformis stretch - Figure-4, knee to opposite shoulder Side bilateral Manual Therapy Treatment Soft Tissue Mobilization 1 Body Location B Piriformis Mobilization Type Strumming,Sustained Pressure, Trigger Point Release Intensity/Depth Deep Body Position Sidelying PT-OP-R Modalities Start: 05/18/21 16:05 Freq: Status: Active Protocol: Document 05/24/21 16:00 DCW (Rec: 05/24/21 16:40 DCW [id number]) Electric Stimulation Electric Stimulation Interferential Current (IFC) Body Location Low back Duration (Minutes) 15 Intensity 29 Cycle Continuous Patient Position Hooklying Combined With Heat/Cold Hot Pack PT-OP-T Assessment and Plan Start: 05/18/21 16:05 Freq: Status: Active Protocol: Document 05/31/21 16:00 DCW (Rec: 05/31/21 16:33 DCW [id number]) Physical Therapy Assessment Impairments Impairments Activity Tolerance,Functional Activities,Functional Mobility ,Pain,Posture,ROM,Soft Tissue Mobility,Strength,Tone Goals Three Impairment Pt requires support from SO during ambulation Nursing Technician Goal (LTG) Pt to ambulate >800' during 6MWT without assistance LTG Duration 08/16/21 Two Impairment Significant sleep disturbances due to pain Long-Term Goal (LTG) Pt to report waking up only 2x /night for three consecutive nights due to back/leg pain LTG Duration 08/16/21 One Impairment Pt does not have an appropriate home exercise program Short Term Goal (STG) Pt to be independent and compliant with an appropriate HEP STG Duration 06/18/21 Assessment Summary Assessment Pt felt he got overworked in PT last week, was hoping to take it a little easier today , and specifically avoid any work on the paraspinals. Kept STM to piriformis, gentle stretching today during a shortened session, will see if there was overall improvement with decreased session time. Physical Therapy Plan Frequency and Duration Frequency of Treatment 2x/Week Duration of Treatment Three months Plan of Care Start Date 05/18/21 Plan of Care End Date 08/16/21 Therapeutic Interventions Therapeutic Interventions Aquatic Therapy,Gait Training, Home Exercise Program,Joint Mobilizations,Manual Therapy, Neuromuscular Re-education, Patient/Caregiver Education, Self-Care/Home Management,Soft Tissue Mobilization, Therapeutic Activities, Therapeutic Exercises Modalities Cold Pack/Ice Massage,Electric Stimulation,Hot Packs, Traction- Mechanical Next Visit Focus/Plan Next Note Type Treatment Note Next Visit Plan STM, Stretching, E-stim, trunk mobility
--- NOTE | 2021-06-03 16:33 | PT.OTN ---
Current Diagnoses Lesion of sciatic nerve, bilateral lower limbs (06/03/21) Pain in right hip (06/03/21) Pain in left hip (06/03/21) Stiffness of right hip, not elsewhere classified (06/03/21) Stiffness of left hip, not elsewhere classified (06/03/21) Stiffness of other specified joint, not elsewhere classified (06/03/21) Intervertebral disc disorders with radiculopathy, lumbar region (06/03/21) Physical Therapy Treatment Note PT-OP-A Visit Information Start: 05/18/21 16:05 Freq: Status: Active Protocol: Document 06/03/21 16:00 DCW (Rec: 06/03/21 16:33 DCW [id number]) Out-Patient Physical Therapy Visit Information Visit Information Visit Type Treatment Note Visit Start Time 16:00 Visit Stop Time 16:30 Total Visit Minutes 30 Visit Number 5 Number of COOK FAST FOOD Visits 0 Evaluation Information Evaluation Date 05/18/21 PT-OP-B Current Condition Start: 05/18/21 16:05 Freq: Status: Active Protocol: Document 05/18/21 15:15 DCW (Rec: 05/18/21 17:25 DCW [id number]) Current Condition History of Current Condition Onset Date ~5 year history Current Complaints Low back pain, posterior hip pain, radicular leg pain History of Current Condition Pt is a 61 year old male presenting to skilled therapy with complaints of worsening radicular pain in his legs, right significantly worse than left. Pain began in earnest five years ago, but has been worsening for the past two years. Pt has a very complicated history of interventions for his low back , including a lamiectomy, and the implantation, and subsequent removal, of a spinal cord stimulator. Pt's SO notes the electrodes had begun to protrude through his skin, and so after having it put in during November,, it was removed June,. Pt notes there was minimal benefit from it anyway. Pt notes he has had three injections with minimal benefit, and that his laminectimy also provided no relief. Pt presents with extreme pain and difficulty with mobility, needing to use his SO for support during gait . Notes that she must help him most days getting out of bed and dressing because the pain has been so bad. Pt notes he used to [place], and his pain is just an accumulation of years worth of being hard on his body. Pain can be as high as 7-9/10 when up walking around. Notes he was on Oxy for a long time, I finally stopped taking it, because they weren't doing any good. Pt's SO reports pt's sleep is frequently greatly disturbed due to pain, pt has to change positions every 30- 40 minutes. Treatment Goals Patient/Caregiver Goals Decrease pain, improve ability to walk without assistance from SO, improve ability to sleep PT-OP-C Subjective Start: 05/18/21 16:05 Freq: Status: Active Protocol: Document 06/03/21 16:00 DCW (Rec: 06/03/21 16:33 DCW [id number]) OP-PT Subjective Patient Comments Patient Comments Pt notes the shorter appointment time last visit seemed to help, he does feel looser when leaving his appointment for a few hours, but notes it always goes back to normal. PT-OP-F Manual Assessment Start: 05/18/21 16:05 Freq: Status: Active Protocol: Document 05/18/21 15:15 DCW (Rec: 05/18/21 17:25 DCW [id number]) Manual Assessments Soft Tissue Assessment Soft Tissue Mobility Assessment Moderate tone with tenderness to palpation 2/4: pain with wincing along bilateral lumbar paraspinals, bilateral QL Severe tone with tenderness to palpation 3/4: wincing and withdraw along bilateral piriformis, R>L Joint Mobility Assessment Joint Mobility Assessment Significant limitations to lumbar mobility secondary to multiple surgical interventions PT-OP-J Posture/Palpation/Skin Start: 05/18/21 16:05 Freq: Status: Active Protocol: Document 05/18/21 15:15 DCW (Rec: 05/18/21 17:25 DCW [id number]) Posture Evaluation Position Standing Evaluation View Lateral L-Spine Posture Flattened,Decreased Lordosis Pelvis Posture Posterior Tilted Weight Distribution Decreased Wt.Bear on (R) PT-OP-K Range of Motion Start: 05/18/21 16:05 Freq: Status: Active Protocol: Document 05/18/21 15:15 DCW (Rec: 05/18/21 17:25 DCW [id number]) Lumbar Spine Range of Motion Lumbar Spine Active Degrees Testing Position Sitting Flexion 0 Extension 0 ROM Limitations Bony Restriction,Muscle Tone, Pain PT-OP-L Special Tests Start: 05/18/21 16:05 Freq: Status: Active Protocol: Document 05/18/21 15:15 DCW (Rec: 05/18/21 17:25 DCW [id number]) Special Tests Lumbar Spine Special Tests Lateral SI compression Test Results Negative OLGA LIDIA Test Results Negative Straight Leg Raise Test Results Hamstring tightness, 45? bilaterally Slump Test Results C/o Hamstring tightness bilaterally Manual Traction Test Results Maybe mild improvement A-P Shearing Test Results Negative Hip Special Tests Piriformis Test Results Strongly positive R>L PT-OP-Q Treatments Start: 05/18/21 16:05 Freq: Status: Active Protocol: Document 06/03/21 16:00 DCW (Rec: 06/03/21 16:33 DCW [id number]) Therapeutic Exercises Supine Exercises 2 Supine Exercise Name Hamstring stretch Side bilateral 1 Supine Exercise Name Piriformis stretch - Figure-4, knee to opposite shoulder Side bilateral Manual Therapy Treatment Soft Tissue Mobilization 1 Body Location B Piriformis Mobilization Type Strumming,Sustained Pressure, Trigger Point Release Intensity/Depth Deep Body Position Sidelying PT-OP-R Modalities Start: 05/18/21 16:05 Freq: Status: Active Protocol: Document 05/24/21 16:00 DCW (Rec: 05/24/21 16:40 DCW [id number]) Electric Stimulation Electric Stimulation Interferential Current (IFC) Body Location Low back Duration (Minutes) 15 Intensity 29 Cycle Continuous Patient Position Hooklying Combined With Heat/Cold Hot Pack PT-OP-T Assessment and Plan Start: 05/18/21 16:05 Freq: Status: Active Protocol: Document 06/03/21 16:00 DCW (Rec: 06/03/21 16:33 DCW [id number]) Physical Therapy Assessment Impairments Impairments Activity Tolerance,Functional Activities,Functional Mobility ,Pain,Posture,ROM,Soft Tissue Mobility,Strength,Tone Goals Three Impairment Pt requires support from SO during ambulation Steel Detailer Goal (LTG) Pt to ambulate >800' during 6MWT without assistance LTG Duration 08/16/21 Two Impairment Significant sleep disturbances due to pain Care Home Goal (LTG) Pt to report waking up only 2x /night for three consecutive nights due to back/leg pain LTG Duration 08/16/21 One Impairment Pt does not have an appropriate home exercise program Short Term Goal (STG) Pt to be independent and compliant with an appropriate HEP STG Duration 06/18/21 Assessment Summary Assessment Pt again requested shortened session, 45 minutes just seem to be too much. Again noticeably loosened up following STM, but still struggles with mobility and gait leaving clinic. Physical Therapy Plan Frequency and Duration Frequency of Treatment 2x/Week Duration of Treatment Three months Plan of Care Start Date 05/18/21 Plan of Care End Date 08/16/21 Therapeutic Interventions Therapeutic Interventions Aquatic Therapy,Gait Training, Home Exercise Program,Joint Mobilizations,Manual Therapy, Neuromuscular Re-education, Patient/Caregiver Education, Self-Care/Home Management,Soft Tissue Mobilization, Therapeutic Activities, Therapeutic Exercises Modalities Cold Pack/Ice Massage,Electric Stimulation,Hot Packs, Traction- Mechanical Next Visit Focus/Plan Next Note Type Treatment Note Next Visit Plan STM, Stretching, E-stim, trunk mobility
--- NOTE | 2021-06-15 15:58 | PT.OTN ---
Current Diagnoses Lesion of sciatic nerve, bilateral lower limbs (06/15/21) Pain in right hip (06/15/21) Pain in left hip (06/15/21) Stiffness of right hip, not elsewhere classified (06/15/21) Stiffness of left hip, not elsewhere classified (06/15/21) Stiffness of other specified joint, not elsewhere classified (06/15/21) Intervertebral disc disorders with radiculopathy, lumbar region (06/15/21) Physical Therapy Treatment Note PT-OP-A Visit Information Start: 05/18/21 16:05 Freq: Status: Active Protocol: Document 06/15/21 15:15 DCW (Rec: 06/15/21 15:55 DCW [id number]) Out-Patient Physical Therapy Visit Information Visit Information Visit Type Treatment Note Visit Start Time 15:15 Visit Stop Time 15:45 Total Visit Minutes 30 Visit Number 6 Number of SHAREPOINT SPECIALIST Visits 0 Evaluation Information Evaluation Date 05/18/21 PT-OP-B Current Condition Start: 05/18/21 16:05 Freq: Status: Active Protocol: Document 05/18/21 15:15 DCW (Rec: 05/18/21 17:25 DCW [id number]) Current Condition History of Current Condition Onset Date ~5 year history Current Complaints Low back pain, posterior hip pain, radicular leg pain History of Current Condition Pt is a 61 year old male presenting to skilled therapy with complaints of worsening radicular pain in his legs, right significantly worse than left. Pain began in earnest five years ago, but has been worsening for the past two years. Pt has a very complicated history of interventions for his low back , including a lamiectomy, and the implantation, and subsequent removal, of a spinal cord stimulator. Pt's SO notes the electrodes had begun to protrude through his skin, and so after having it put in during November,, it was removed June,. Pt notes there was minimal benefit from it anyway. Pt notes he has had three injections with minimal benefit, and that his laminectimy also provided no relief. Pt presents with extreme pain and difficulty with mobility, needing to use his SO for support during gait . Notes that she must help him most days getting out of bed and dressing because the pain has been so bad. Pt notes he used to work [place], and his pain is just an accumulation of years worth of being hard on his body. Pain can be as high as 7-9/10 when up walking around. Notes he was on Oxy for a long time, I finally stopped taking it, because they weren't doing any good. Pt's SO reports pt's sleep is frequently greatly disturbed due to pain, pt has to change positions every 30- 40 minutes. Treatment Goals Patient/Caregiver Goals Decrease pain, improve ability to walk without assistance from SO, improve ability to sleep PT-OP-C Subjective Start: 05/18/21 16:05 Freq: Status: Active Protocol: Document 06/15/21 15:15 DCW (Rec: 06/15/21 15:58 DCW [id number]) OP-PT Subjective Patient Comments Patient Comments Pt was unable to come to PT last week secondary to severe back and leg pain. PT-OP-F Manual Assessment Start: 05/18/21 16:05 Freq: Status: Active Protocol: Document 05/18/21 15:15 DCW (Rec: 05/18/21 17:25 DCW [id number]) Manual Assessments Soft Tissue Assessment Soft Tissue Mobility Assessment Moderate tone with tenderness to palpation 2/4: pain with wincing along bilateral lumbar paraspinals, bilateral QL Severe tone with tenderness to palpation 3/4: wincing and withdraw along bilateral piriformis, R>L Joint Mobility Assessment Joint Mobility Assessment Significant limitations to lumbar mobility secondary to multiple surgical interventions PT-OP-J Posture/Palpation/Skin Start: 05/18/21 16:05 Freq: Status: Active Protocol: Document 05/18/21 15:15 DCW (Rec: 05/18/21 17:25 DCW [id number]) Posture Evaluation Position Standing Evaluation View Lateral L-Spine Posture Flattened,Decreased Lordosis Pelvis Posture Posterior Tilted Weight Distribution Decreased Wt.Bear on (R) PT-OP-K Range of Motion Start: 05/18/21 16:05 Freq: Status: Active Protocol: Document 05/18/21 15:15 DCW (Rec: 05/18/21 17:25 DCW [id number]) Lumbar Spine Range of Motion Lumbar Spine Active Degrees Testing Position Sitting Flexion 0 Extension 0 ROM Limitations Bony Restriction,Muscle Tone, Pain PT-OP-L Special Tests Start: 05/18/21 16:05 Freq: Status: Active Protocol: Document 05/18/21 15:15 DCW (Rec: 05/18/21 17:25 DCW [id number]) Special Tests Lumbar Spine Special Tests Lateral SI compression Test Results Negative OLGA LIDIA Test Results Negative Straight Leg Raise Test Results Hamstring tightness, 45? bilaterally Slump Test Results C/o Hamstring tightness bilaterally Manual Traction Test Results Maybe mild improvement A-P Shearing Test Results Negative Hip Special Tests Piriformis Test Results Strongly positive R>L PT-OP-Q Treatments Start: 05/18/21 16:05 Freq: Status: Active Protocol: Document 06/15/21 15:15 DCW (Rec: 06/15/21 15:55 DCW [id number]) Therapeutic Exercises Supine Exercises 2 Supine Exercise Name Hamstring stretch Side bilateral 1 Supine Exercise Name Piriformis stretch - Figure-4, knee to opposite shoulder Side bilateral Manual Therapy Treatment Soft Tissue Mobilization 1 Body Location B Piriformis Mobilization Type Strumming,Sustained Pressure, Trigger Point Release Intensity/Depth Deep Body Position Sidelying PT-OP-R Modalities Start: 05/18/21 16:05 Freq: Status: Active Protocol: Document 05/24/21 16:00 DCW (Rec: 05/24/21 16:40 DCW [id number]) Electric Stimulation Electric Stimulation Interferential Current (IFC) Body Location Low back Duration (Minutes) 15 Intensity 29 Cycle Continuous Patient Position Hooklying Combined With Heat/Cold Hot Pack PT-OP-T Assessment and Plan Start: 05/18/21 16:05 Freq: Status: Active Protocol: Document 06/15/21 15:15 DCW (Rec: 06/15/21 15:55 DCW [id number]) Physical Therapy Assessment Impairments Impairments Activity Tolerance,Functional Activities,Functional Mobility ,Pain,Posture,ROM,Soft Tissue Mobility,Strength,Tone Goals Three Impairment Pt requires support from SO during ambulation Alf Goal (LTG) Pt to ambulate >800' during 6MWT without assistance LTG Duration 08/16/21 Two Impairment Significant sleep disturbances due to pain Alf Goal (LTG) Pt to report waking up only 2x /night for three consecutive nights due to back/leg pain LTG Duration 08/16/21 One Impairment Pt does not have an appropriate home exercise program Short Term Goal (STG) Pt to be independent and compliant with an appropriate HEP STG Duration 06/18/21 Assessment Summary Assessment Shortened 30 minute session again today, pt unable to tolerate full 45 minutes. Pt's SO asking about other options today, like aqua therapy and home hot packs, as well as increased stretching at home, pt did not appear to be interested in following through with any of these ideas. Physical Therapy Plan Frequency and Duration Frequency of Treatment 2x/Week Duration of Treatment Three months Plan of Care Start Date 05/18/21 Plan of Care End Date 08/16/21 Therapeutic Interventions Therapeutic Interventions Aquatic Therapy,Gait Training, Home Exercise Program,Joint Mobilizations,Manual Therapy, Neuromuscular Re-education, Patient/Caregiver Education, Self-Care/Home Management,Soft Tissue Mobilization, Therapeutic Activities, Therapeutic Exercises Modalities Cold Pack/Ice Massage,Electric Stimulation,Hot Packs, Traction- Mechanical Next Visit Focus/Plan Next Note Type Treatment Note Next Visit Plan STM, Stretching, E-stim, trunk mobility
--- NOTE | 2021-06-21 16:38 | PT.OTN ---
Current Diagnoses Lesion of sciatic nerve, bilateral lower limbs (06/21/21) Pain in right hip (06/21/21) Pain in left hip (06/21/21) Stiffness of right hip, not elsewhere classified (06/21/21) Stiffness of left hip, not elsewhere classified (06/21/21) Stiffness of other specified joint, not elsewhere classified (06/21/21) Intervertebral disc disorders with radiculopathy, lumbar region (06/21/21) Physical Therapy Treatment Note PT-OP-A Visit Information Start: 05/18/21 16:05 Freq: Status: Active Protocol: Document 06/21/21 16:00 DCW (Rec: 06/21/21 16:38 DCW [id number]) Out-Patient Physical Therapy Visit Information Visit Information Visit Type Treatment Note Visit Start Time 15:15 Visit Stop Time 15:45 Total Visit Minutes 30 Visit Number 7 Number of OPERATIONS SUPPORT SPECIALIST Visits 0 Evaluation Information Evaluation Date 05/18/21 PT-OP-B Current Condition Start: 05/18/21 16:05 Freq: Status: Active Protocol: Document 05/18/21 15:15 DCW (Rec: 05/18/21 17:25 DCW [id number]) Current Condition History of Current Condition Onset Date ~5 year history Current Complaints Low back pain, posterior hip pain, radicular leg pain History of Current Condition Pt is a 61 year old male presenting to skilled therapy with complaints of worsening radicular pain in his legs, right significantly worse than left. Pain began in earnest five years ago, but has been worsening for the past two years. Pt has a very complicated history of interventions for his low back , including a lamiectomy, and the implantation, and subsequent removal, of a spinal cord stimulator. Pt's SO notes the electrodes had begun to protrude through his skin, and so after having it put in during November,, it was removed June,. Pt notes there was minimal benefit from it anyway. Pt notes he has had three injections with minimal benefit, and that his laminectimy also provided no relief. Pt presents with extreme pain and difficulty with mobility, needing to use his SO for support during gait . Notes that she must help him most days getting out of bed and dressing because the pain has been so bad. Pt notes he used to [place], and his pain is just an accumulation of years worth of being hard on his body. Pain can be as high as 7-9/10 when up walking around. Notes he was on Oxy for a long time, I finally stopped taking it, because they weren't doing any good. Pt's SO reports pt's sleep is frequently greatly disturbed due to pain, pt has to change positions every 30- 40 minutes. Treatment Goals Patient/Caregiver Goals Decrease pain, improve ability to walk without assistance from SO, improve ability to sleep PT-OP-C Subjective Start: 05/18/21 16:05 Freq: Status: Active Protocol: Document 06/21/21 16:00 DCW (Rec: 06/21/21 16:38 DCW [id number]) OP-PT Subjective Patient Comments Patient Comments Wasn't good at all over the last week. Notes the right side is much more problematic. PT-OP-F Manual Assessment Start: 05/18/21 16:05 Freq: Status: Active Protocol: Document 05/18/21 15:15 DCW (Rec: 05/18/21 17:25 DCW [id number]) Manual Assessments Soft Tissue Assessment Soft Tissue Mobility Assessment Moderate tone with tenderness to palpation 2/4: pain with wincing along bilateral lumbar paraspinals, bilateral QL Severe tone with tenderness to palpation 3/4: wincing and withdraw along bilateral piriformis, R>L Joint Mobility Assessment Joint Mobility Assessment Significant limitations to lumbar mobility secondary to multiple surgical interventions PT-OP-J Posture/Palpation/Skin Start: 05/18/21 16:05 Freq: Status: Active Protocol: Document 05/18/21 15:15 DCW (Rec: 05/18/21 17:25 DCW [id number]) Posture Evaluation Position Standing Evaluation View Lateral L-Spine Posture Flattened,Decreased Lordosis Pelvis Posture Posterior Tilted Weight Distribution Decreased Wt.Bear on (R) PT-OP-K Range of Motion Start: 05/18/21 16:05 Freq: Status: Active Protocol: Document 05/18/21 15:15 DCW (Rec: 05/18/21 17:25 DCW [id number]) Lumbar Spine Range of Motion Lumbar Spine Active Degrees Testing Position Sitting Flexion 0 Extension 0 ROM Limitations Bony Restriction,Muscle Tone, Pain PT-OP-L Special Tests Start: 05/18/21 16:05 Freq: Status: Active Protocol: Document 05/18/21 15:15 DCW (Rec: 05/18/21 17:25 DCW [id number]) Special Tests Lumbar Spine Special Tests Lateral SI compression Test Results Negative OLGA LIDIA Test Results Negative Straight Leg Raise Test Results Hamstring tightness, 45? bilaterally Slump Test Results C/o Hamstring tightness bilaterally Manual Traction Test Results Maybe mild improvement A-P Shearing Test Results Negative Hip Special Tests Piriformis Test Results Strongly positive R>L PT-OP-Q Treatments Start: 05/18/21 16:05 Freq: Status: Active Protocol: Document 06/21/21 16:00 DCW (Rec: 06/21/21 16:38 DCW [id number]) Therapeutic Exercises Supine Exercises 2 Supine Exercise Name Hamstring stretch Side bilateral 1 Supine Exercise Name Piriformis stretch - Figure-4, knee to opposite shoulder Side bilateral Manual Therapy Treatment Soft Tissue Mobilization 1 Body Location B Piriformis Mobilization Type Strumming,Sustained Pressure, Trigger Point Release Intensity/Depth Deep Body Position Sidelying PT-OP-R Modalities Start: 05/18/21 16:05 Freq: Status: Active Protocol: Document 05/24/21 16:00 DCW (Rec: 05/24/21 16:40 DCW [id number]) Electric Stimulation Electric Stimulation Interferential Current (IFC) Body Location Low back Duration (Minutes) 15 Intensity 29 Cycle Continuous Patient Position Hooklying Combined With Heat/Cold Hot Pack PT-OP-T Assessment and Plan Start: 05/18/21 16:05 Freq: Status: Active Protocol: Document 06/21/21 16:00 DCW (Rec: 06/21/21 16:38 DCW [id number]) Physical Therapy Assessment Impairments Impairments Activity Tolerance,Functional Activities,Functional Mobility ,Pain,Posture,ROM,Soft Tissue Mobility,Strength,Tone Goals Three Impairment Pt requires support from SO during ambulation Sheet Metal Roofer Goal (LTG) Pt to ambulate >800' during 6MWT without assistance LTG Duration 08/16/21 Two Impairment Significant sleep disturbances due to pain Sheet Metal Roofer Goal (LTG) Pt to report waking up only 2x /night for three consecutive nights due to back/leg pain LTG Duration 08/16/21 One Impairment Pt does not have an appropriate home exercise program Short Term Goal (STG) Pt to be independent and compliant with an appropriate HEP STG Duration 06/18/21 Assessment Summary Assessment Pt still struggling a lot will all mobility, noting some L- sided improvement, but R side still incredibly hypertonic, pt still struggling with gait. Physical Therapy Plan Frequency and Duration Frequency of Treatment 2x/Week Duration of Treatment Three months Plan of Care Start Date 05/18/21 Plan of Care End Date 08/16/21 Therapeutic Interventions Therapeutic Interventions Aquatic Therapy,Gait Training, Home Exercise Program,Joint Mobilizations,Manual Therapy, Neuromuscular Re-education, Patient/Caregiver Education, Self-Care/Home Management,Soft Tissue Mobilization, Therapeutic Activities, Therapeutic Exercises Modalities Cold Pack/Ice Massage,Electric Stimulation,Hot Packs, Traction- Mechanical Next Visit Focus/Plan Next Note Type Treatment Note Next Visit Plan STM, Stretching, E-stim, trunk mobility
--- NOTE | 2021-06-24 16:32 | PT.OTN ---
Current Diagnoses Lesion of sciatic nerve, bilateral lower limbs (06/24/21) Pain in right hip (06/24/21) Pain in left hip (06/24/21) Stiffness of right hip, not elsewhere classified (06/24/21) Stiffness of left hip, not elsewhere classified (06/24/21) Stiffness of other specified joint, not elsewhere classified (06/24/21) Intervertebral disc disorders with radiculopathy, lumbar region (06/24/21) Physical Therapy Treatment Note PT-OP-A Visit Information Start: 05/18/21 16:05 Freq: Status: Active Protocol: Document 06/24/21 16:00 DCW (Rec: 06/24/21 16:32 DCW [id number]) Out-Patient Physical Therapy Visit Information Visit Information Visit Type Treatment Note Visit Start Time 16:00 Visit Stop Time 16:30 Total Visit Minutes 30 Visit Number 8 Number of ART THERAPIST Visits 0 Evaluation Information Evaluation Date 05/18/21 PT-OP-B Current Condition Start: 05/18/21 16:05 Freq: Status: Active Protocol: Document 05/18/21 15:15 DCW (Rec: 05/18/21 17:25 DCW [id number]) Current Condition History of Current Condition Onset Date ~5 year history Current Complaints Low back pain, posterior hip pain, radicular leg pain History of Current Condition Pt is a 61 year old male presenting to skilled therapy with complaints of worsening radicular pain in his legs, right significantly worse than left. Pain began in earnest five years ago, but has been worsening for the past two years. Pt has a very complicated history of interventions for his low back , including a lamiectomy, and the implantation, and subsequent removal, of a spinal cord stimulator. Pt's SO notes the electrodes had begun to protrude through his skin, and so after having it put in during November,, it was removed June,. Pt notes there was minimal benefit from it anyway. Pt notes he has had three injections with minimal benefit, and that his laminectimy also provided no relief. Pt presents with extreme pain and difficulty with mobility, needing to use his SO for support during gait . Notes that she must help him most days getting out of bed and dressing because the pain has been so bad. Pt notes he used to [place], and his pain is just an accumulation of years worth of being hard on his body. Pain can be as high as 7-9/10 when up walking around. Notes he was on Oxy for a long time, I finally stopped taking it, because they weren't doing any good. Pt's SO reports pt's sleep is frequently greatly disturbed due to pain, pt has to change positions every 30- 40 minutes. Treatment Goals Patient/Caregiver Goals Decrease pain, improve ability to walk without assistance from SO, improve ability to sleep PT-OP-C Subjective Start: 05/18/21 16:05 Freq: Status: Active Protocol: Document 06/24/21 16:00 DCW (Rec: 06/24/21 16:32 DCW [id number]) OP-PT Subjective Patient Comments Patient Comments I'm a little looser today. Per SO, we are on the right track with muscle relaxation. We've been doing research, and speaking with the neuro surgeons to figure out how to decrease the stress through the muscles. PT-OP-F Manual Assessment Start: 05/18/21 16:05 Freq: Status: Active Protocol: Document 05/18/21 15:15 DCW (Rec: 05/18/21 17:25 DCW [id number]) Manual Assessments Soft Tissue Assessment Soft Tissue Mobility Assessment Moderate tone with tenderness to palpation 2/4: pain with wincing along bilateral lumbar paraspinals, bilateral QL Severe tone with tenderness to palpation 3/4: wincing and withdraw along bilateral piriformis, R>L Joint Mobility Assessment Joint Mobility Assessment Significant limitations to lumbar mobility secondary to multiple surgical interventions PT-OP-J Posture/Palpation/Skin Start: 05/18/21 16:05 Freq: Status: Active Protocol: Document 05/18/21 15:15 DCW (Rec: 05/18/21 17:25 DCW [id number]) Posture Evaluation Position Standing Evaluation View Lateral L-Spine Posture Flattened,Decreased Lordosis Pelvis Posture Posterior Tilted Weight Distribution Decreased Wt.Bear on (R) PT-OP-K Range of Motion Start: 05/18/21 16:05 Freq: Status: Active Protocol: Document 05/18/21 15:15 DCW (Rec: 05/18/21 17:25 DCW [id number]) Lumbar Spine Range of Motion Lumbar Spine Active Degrees Testing Position Sitting Flexion 0 Extension 0 ROM Limitations Bony Restriction,Muscle Tone, Pain PT-OP-L Special Tests Start: 05/18/21 16:05 Freq: Status: Active Protocol: Document 05/18/21 15:15 DCW (Rec: 05/18/21 17:25 DCW [id number]) Special Tests Lumbar Spine Special Tests Lateral SI compression Test Results Negative OLGA LIDIA Test Results Negative Straight Leg Raise Test Results Hamstring tightness, 45? bilaterally Slump Test Results C/o Hamstring tightness bilaterally Manual Traction Test Results Maybe mild improvement A-P Shearing Test Results Negative Hip Special Tests Piriformis Test Results Strongly positive R>L PT-OP-Q Treatments Start: 05/18/21 16:05 Freq: Status: Active Protocol: Document 06/24/21 16:00 DCW (Rec: 06/24/21 16:32 DCW [id number]) Therapeutic Exercises Supine Exercises 2 Supine Exercise Name Hamstring stretch Side bilateral 1 Supine Exercise Name Piriformis stretch - Figure-4, knee to opposite shoulder Side bilateral Manual Therapy Treatment Soft Tissue Mobilization 1 Body Location B Piriformis Mobilization Type Strumming,Sustained Pressure, Trigger Point Release Intensity/Depth Deep Body Position Sidelying PT-OP-R Modalities Start: 05/18/21 16:05 Freq: Status: Active Protocol: Document 05/24/21 16:00 DCW (Rec: 05/24/21 16:40 DCW [id number]) Electric Stimulation Electric Stimulation Interferential Current (IFC) Body Location Low back Duration (Minutes) 15 Intensity 29 Cycle Continuous Patient Position Hooklying Combined With Heat/Cold Hot Pack PT-OP-T Assessment and Plan Start: 05/18/21 16:05 Freq: Status: Active Protocol: Document 06/24/21 16:00 DCW (Rec: 06/24/21 16:32 DCW [id number]) Physical Therapy Assessment Impairments Impairments Activity Tolerance,Functional Activities,Functional Mobility ,Pain,Posture,ROM,Soft Tissue Mobility,Strength,Tone Goals Three Impairment Pt requires support from SO during ambulation Hydrometallurgical Engineer Goal (LTG) Pt to ambulate >800' during 6MWT without assistance LTG Duration 08/16/21 Two Impairment Significant sleep disturbances due to pain Retirement Goal (LTG) Pt to report waking up only 2x /night for three consecutive nights due to back/leg pain LTG Duration 08/16/21 One Impairment Pt does not have an appropriate home exercise program Short Term Goal (STG) Pt to be independent and compliant with an appropriate HEP STG Duration 06/18/21 Assessment Summary Assessment Pt showing some improvement finally today, left side doing very well, right side improved from last visit but still very high-tone. Physical Therapy Plan Frequency and Duration Frequency of Treatment 2x/Week Duration of Treatment Three months Plan of Care Start Date 05/18/21 Plan of Care End Date 08/16/21 Therapeutic Interventions Therapeutic Interventions Aquatic Therapy,Gait Training, Home Exercise Program,Joint Mobilizations,Manual Therapy, Neuromuscular Re-education, Patient/Caregiver Education, Self-Care/Home Management,Soft Tissue Mobilization, Therapeutic Activities, Therapeutic Exercises Modalities Cold Pack/Ice Massage,Electric Stimulation,Hot Packs, Traction- Mechanical Next Visit Focus/Plan Next Note Type Treatment Note Next Visit Plan STM, Stretching, E-stim, trunk mobility
--- NOTE | 2021-06-28 16:32 | PT.OTN ---
Current Diagnoses Lesion of sciatic nerve, bilateral lower limbs (06/28/21) Pain in right hip (06/28/21) Pain in left hip (06/28/21) Stiffness of right hip, not elsewhere classified (06/28/21) Stiffness of left hip, not elsewhere classified (06/28/21) Stiffness of other specified joint, not elsewhere classified (06/28/21) Intervertebral disc disorders with radiculopathy, lumbar region (06/28/21) Physical Therapy Treatment Note PT-OP-A Visit Information Start: 05/18/21 16:05 Freq: Status: Active Protocol: Document 06/28/21 16:00 DCW (Rec: 06/28/21 16:32 DCW [id number]) Out-Patient Physical Therapy Visit Information Visit Information Visit Type Treatment Note Visit Start Time 16:00 Visit Stop Time 16:30 Total Visit Minutes 30 Visit Number 9 Number of CATARACT LENS GENERATOR Visits 0 Evaluation Information Evaluation Date 05/18/21 PT-OP-B Current Condition Start: 05/18/21 16:05 Freq: Status: Active Protocol: Document 05/18/21 15:15 DCW (Rec: 05/18/21 17:25 DCW [id number]) Current Condition History of Current Condition Onset Date ~5 year history Current Complaints Low back pain, posterior hip pain, radicular leg pain History of Current Condition Pt is a 61 year old male presenting to skilled therapy with complaints of worsening radicular pain in his legs, right significantly worse than left. Pain began in earnest five years ago, but has been worsening for the past two years. Pt has a very complicated history of interventions for his low back , including a lamiectomy, and the implantation, and subsequent removal, of a spinal cord stimulator. Pt's SO notes the electrodes had begun to protrude through his skin, and so after having it put in during November,, it was removed June,. Pt notes there was minimal benefit from it anyway. Pt notes he has had three injections with minimal benefit, and that his laminectimy also provided no relief. Pt presents with extreme pain and difficulty with mobility, needing to use his SO for support during gait . Notes that she must help him most days getting out of bed and dressing because the pain has been so bad. Pt notes he used to [place], and his pain is just an accumulation of years worth of being hard on his body. Pain can be as high as 7-9/10 when up walking around. Notes he was on Oxy for a long time, I finally stopped taking it, because they weren't doing any good. Pt's SO reports pt's sleep is frequently greatly disturbed due to pain, pt has to change positions every 30- 40 minutes. Treatment Goals Patient/Caregiver Goals Decrease pain, improve ability to walk without assistance from SO, improve ability to sleep PT-OP-C Subjective Start: 05/18/21 16:05 Freq: Status: Active Protocol: Document 06/28/21 16:00 DCW (Rec: 06/28/21 16:32 DCW [id number]) OP-PT Subjective Patient Comments Patient Comments There was an improvement after , but then there was just a wrong turn, and it got a bit worse. Still better overall, the pain has lessened, but the walking skilled haven't improved. PT-OP-F Manual Assessment Start: 05/18/21 16:05 Freq: Status: Active Protocol: Document 05/18/21 15:15 DCW (Rec: 05/18/21 17:25 DCW [id number]) Manual Assessments Soft Tissue Assessment Soft Tissue Mobility Assessment Moderate tone with tenderness to palpation 2/4: pain with wincing along bilateral lumbar paraspinals, bilateral QL Severe tone with tenderness to palpation 3/4: wincing and withdraw along bilateral piriformis, R>L Joint Mobility Assessment Joint Mobility Assessment Significant limitations to lumbar mobility secondary to multiple surgical interventions PT-OP-J Posture/Palpation/Skin Start: 05/18/21 16:05 Freq: Status: Active Protocol: Document 05/18/21 15:15 DCW (Rec: 05/18/21 17:25 DCW [id number]) Posture Evaluation Position Standing Evaluation View Lateral L-Spine Posture Flattened,Decreased Lordosis Pelvis Posture Posterior Tilted Weight Distribution Decreased Wt.Bear on (R) PT-OP-K Range of Motion Start: 05/18/21 16:05 Freq: Status: Active Protocol: Document 05/18/21 15:15 DCW (Rec: 05/18/21 17:25 DCW [id number]) Lumbar Spine Range of Motion Lumbar Spine Active Degrees Testing Position Sitting Flexion 0 Extension 0 ROM Limitations Bony Restriction,Muscle Tone, Pain PT-OP-L Special Tests Start: 05/18/21 16:05 Freq: Status: Active Protocol: Document 05/18/21 15:15 DCW (Rec: 05/18/21 17:25 DCW [id number]) Special Tests Lumbar Spine Special Tests Lateral SI compression Test Results Negative OLGA LIDIA Test Results Negative Straight Leg Raise Test Results Hamstring tightness, 45? bilaterally Slump Test Results C/o Hamstring tightness bilaterally Manual Traction Test Results Maybe mild improvement A-P Shearing Test Results Negative Hip Special Tests Piriformis Test Results Strongly positive R>L PT-OP-Q Treatments Start: 05/18/21 16:05 Freq: Status: Active Protocol: Document 06/28/21 16:00 DCW (Rec: 06/28/21 16:32 DCW [id number]) Therapeutic Exercises Supine Exercises 2 Supine Exercise Name Hamstring stretch Side bilateral 1 Supine Exercise Name Piriformis stretch - Figure-4, knee to opposite shoulder Side bilateral Manual Therapy Treatment Soft Tissue Mobilization 1 Body Location B Piriformis Mobilization Type Strumming,Sustained Pressure, Trigger Point Release Intensity/Depth Deep Body Position Sidelying PT-OP-R Modalities Start: 05/18/21 16:05 Freq: Status: Active Protocol: Document 05/24/21 16:00 DCW (Rec: 05/24/21 16:40 DCW [id number]) Electric Stimulation Electric Stimulation Interferential Current (IFC) Body Location Low back Duration (Minutes) 15 Intensity 29 Cycle Continuous Patient Position Hooklying Combined With Heat/Cold Hot Pack PT-OP-T Assessment and Plan Start: 05/18/21 16:05 Freq: Status: Active Protocol: Document 06/28/21 16:00 DCW (Rec: 06/28/21 16:32 DCW [id number]) Physical Therapy Assessment Impairments Impairments Activity Tolerance,Functional Activities,Functional Mobility ,Pain,Posture,ROM,Soft Tissue Mobility,Strength,Tone Goals Three Impairment Pt requires support from SO during ambulation Senior Living Goal (LTG) Pt to ambulate >800' during 6MWT without assistance LTG Duration 08/16/21 Two Impairment Significant sleep disturbances due to pain Senior Living Goal (LTG) Pt to report waking up only 2x /night for three consecutive nights due to back/leg pain LTG Duration 08/16/21 One Impairment Pt does not have an appropriate home exercise program Short Term Goal (STG) Pt to be independent and compliant with an appropriate HEP STG Duration 06/18/21 Assessment Summary Assessment Pt continues to show some small recent improvements, left side much better, right showing some signs of decreased tone. Physical Therapy Plan Frequency and Duration Frequency of Treatment 2x/Week Duration of Treatment Three months Plan of Care Start Date 05/18/21 Plan of Care End Date 08/16/21 Therapeutic Interventions Therapeutic Interventions Aquatic Therapy,Gait Training, Home Exercise Program,Joint Mobilizations,Manual Therapy, Neuromuscular Re-education, Patient/Caregiver Education, Self-Care/Home Management,Soft Tissue Mobilization, Therapeutic Activities, Therapeutic Exercises Modalities Cold Pack/Ice Massage,Electric Stimulation,Hot Packs, Traction- Mechanical Next Visit Focus/Plan Next Note Type Treatment Note Next Visit Plan STM, Stretching, E-stim, trunk mobility
--- NOTE | 2021-07-01 16:30 | PT.OTN ---
Current Diagnoses Lesion of sciatic nerve, bilateral lower limbs (07/01/21) Pain in right hip (07/01/21) Pain in left hip (07/01/21) Stiffness of right hip, not elsewhere classified (07/01/21) Stiffness of left hip, not elsewhere classified (07/01/21) Stiffness of other specified joint, not elsewhere classified (07/01/21) Intervertebral disc disorders with radiculopathy, lumbar region (07/01/21) Physical Therapy Treatment Note PT-OP-A Visit Information Start: 05/18/21 16:05 Freq: Status: Active Protocol: Document 07/01/21 16:00 DCW (Rec: 07/01/21 16:30 DCW [id number]) Out-Patient Physical Therapy Visit Information Visit Information Visit Type Treatment Note Visit Start Time 16:00 Visit Stop Time 16:30 Total Visit Minutes 30 Visit Number 10 Number of MANPOWER DEVELOPMENT MANAGER Visits 0 Evaluation Information Evaluation Date 05/18/21 PT-OP-B Current Condition Start: 05/18/21 16:05 Freq: Status: Active Protocol: Document 05/18/21 15:15 DCW (Rec: 05/18/21 17:25 DCW [id number]) Current Condition History of Current Condition Onset Date ~5 year history Current Complaints Low back pain, posterior hip pain, radicular leg pain History of Current Condition Pt is a 61 year old male presenting to skilled therapy with complaints of worsening radicular pain in his legs, right significantly worse than left. Pain began in earnest five years ago, but has been worsening for the past two years. Pt has a very complicated history of interventions for his low back , including a lamiectomy, and the implantation, and subsequent removal, of a spinal cord stimulator. Pt's SO notes the electrodes had begun to protrude through his skin, and so after having it put in during November,, it was removed June,. Pt notes there was minimal benefit from it anyway. Pt notes he has had three injections with minimal benefit, and that his laminectimy also provided no relief. Pt presents with extreme pain and difficulty with mobility, needing to use his SO for support during gait . Notes that she must help him most days getting out of bed and dressing because the pain has been so bad. Pt notes he used to [place], and his pain is just an accumulation of years worth of being hard on his body. Pain can be as high as 7-9/10 when up walking around. Notes he was on Oxy for a long time, I finally stopped taking it, because they weren't doing any good. Pt's SO reports pt's sleep is frequently greatly disturbed due to pain, pt has to change positions every 30- 40 minutes. Treatment Goals Patient/Caregiver Goals Decrease pain, improve ability to walk without assistance from SO, improve ability to sleep PT-OP-C Subjective Start: 05/18/21 16:05 Freq: Status: Active Protocol: Document 07/01/21 16:00 DCW (Rec: 07/01/21 16:30 DCW [id number]) OP-PT Subjective Patient Comments Patient Comments I'm walking a little better. PT-OP-F Manual Assessment Start: 05/18/21 16:05 Freq: Status: Active Protocol: Document 05/18/21 15:15 DCW (Rec: 05/18/21 17:25 DCW [id number]) Manual Assessments Soft Tissue Assessment Soft Tissue Mobility Assessment Moderate tone with tenderness to palpation 2/4: pain with wincing along bilateral lumbar paraspinals, bilateral QL Severe tone with tenderness to palpation 3/4: wincing and withdraw along bilateral piriformis, R>L Joint Mobility Assessment Joint Mobility Assessment Significant limitations to lumbar mobility secondary to multiple surgical interventions PT-OP-J Posture/Palpation/Skin Start: 05/18/21 16:05 Freq: Status: Active Protocol: Document 05/18/21 15:15 DCW (Rec: 05/18/21 17:25 DCW [id number]) Posture Evaluation Position Standing Evaluation View Lateral L-Spine Posture Flattened,Decreased Lordosis Pelvis Posture Posterior Tilted Weight Distribution Decreased Wt.Bear on (R) PT-OP-K Range of Motion Start: 05/18/21 16:05 Freq: Status: Active Protocol: Document 05/18/21 15:15 DCW (Rec: 05/18/21 17:25 DCW [id number]) Lumbar Spine Range of Motion Lumbar Spine Active Degrees Testing Position Sitting Flexion 0 Extension 0 ROM Limitations Bony Restriction,Muscle Tone, Pain PT-OP-L Special Tests Start: 05/18/21 16:05 Freq: Status: Active Protocol: Document 05/18/21 15:15 DCW (Rec: 05/18/21 17:25 DCW [id number]) Special Tests Lumbar Spine Special Tests Lateral SI compression Test Results Negative OLGA LIDIA Test Results Negative Straight Leg Raise Test Results Hamstring tightness, 45? bilaterally Slump Test Results C/o Hamstring tightness bilaterally Manual Traction Test Results Maybe mild improvement A-P Shearing Test Results Negative Hip Special Tests Piriformis Test Results Strongly positive R>L PT-OP-Q Treatments Start: 05/18/21 16:05 Freq: Status: Active Protocol: Document 07/01/21 16:00 DCW (Rec: 07/01/21 16:30 DCW [id number]) Therapeutic Exercises Supine Exercises 2 Supine Exercise Name Hamstring stretch Side bilateral 1 Supine Exercise Name Piriformis stretch - Figure-4, knee to opposite shoulder Side bilateral Manual Therapy Treatment Soft Tissue Mobilization 1 Body Location R Piriformis Mobilization Type Strumming,Sustained Pressure, Trigger Point Release Intensity/Depth Deep Body Position Sidelying PT-OP-R Modalities Start: 05/18/21 16:05 Freq: Status: Active Protocol: Document 05/24/21 16:00 DCW (Rec: 05/24/21 16:40 DCW [id number]) Electric Stimulation Electric Stimulation Interferential Current (IFC) Body Location Low back Duration (Minutes) 15 Intensity 29 Cycle Continuous Patient Position Hooklying Combined With Heat/Cold Hot Pack PT-OP-T Assessment and Plan Start: 05/18/21 16:05 Freq: Status: Active Protocol: Document 07/01/21 16:00 DCW (Rec: 07/01/21 16:30 DCW [id number]) Physical Therapy Assessment Impairments Impairments Activity Tolerance,Functional Activities,Functional Mobility ,Pain,Posture,ROM,Soft Tissue Mobility,Strength,Tone Goals Three Impairment Pt requires support from SO during ambulation Radar Engineer Goal (LTG) Pt to ambulate >800' during 6MWT without assistance LTG Duration 08/16/21 Two Impairment Significant sleep disturbances due to pain Group Home Goal (LTG) Pt to report waking up only 2x /night for three consecutive nights due to back/leg pain LTG Duration 08/16/21 One Impairment Pt does not have an appropriate home exercise program Short Term Goal (STG) Pt to be independent and compliant with an appropriate HEP STG Duration 06/18/21 Assessment Summary Assessment Pt tolerating treatment much better recently, decreased piriformis tone, notes improved sleeping. Physical Therapy Plan Frequency and Duration Frequency of Treatment 2x/Week Duration of Treatment Three months Plan of Care Start Date 05/18/21 Plan of Care End Date 08/16/21 Therapeutic Interventions Therapeutic Interventions Aquatic Therapy,Gait Training, Home Exercise Program,Joint Mobilizations,Manual Therapy, Neuromuscular Re-education, Patient/Caregiver Education, Self-Care/Home Management,Soft Tissue Mobilization, Therapeutic Activities, Therapeutic Exercises Modalities Cold Pack/Ice Massage,Electric Stimulation,Hot Packs, Traction- Mechanical Next Visit Focus/Plan Next Note Type Treatment Note Next Visit Plan STM, Stretching, E-stim, trunk mobility
--- NOTE | 2021-07-14 16:31 | PT.OTN ---
Current Diagnoses Lesion of sciatic nerve, bilateral lower limbs (07/14/21) Pain in right hip (07/14/21) Pain in left hip (07/14/21) Stiffness of right hip, not elsewhere classified (07/14/21) Stiffness of left hip, not elsewhere classified (07/14/21) Stiffness of other specified joint, not elsewhere classified (07/14/21) Intervertebral disc disorders with radiculopathy, lumbar region (07/14/21) Physical Therapy Treatment Note PT-OP-A Visit Information Start: 05/18/21 16:05 Freq: Status: Active Protocol: Document 07/14/21 16:00 DCW (Rec: 07/14/21 16:31 DCW [id number]) Out-Patient Physical Therapy Visit Information Visit Information Visit Type Treatment Note Visit Start Time 16:00 Visit Stop Time 16:30 Total Visit Minutes 30 Visit Number 11 Number of DIAPHRAGM BUILDER Visits 0 Evaluation Information Evaluation Date 05/18/21 PT-OP-B Current Condition Start: 05/18/21 16:05 Freq: Status: Active Protocol: Document 05/18/21 15:15 DCW (Rec: 05/18/21 17:25 DCW [id number]) Current Condition History of Current Condition Onset Date ~5 year history Current Complaints Low back pain, posterior hip pain, radicular leg pain History of Current Condition Pt is a 61 year old male presenting to skilled therapy with complaints of worsening radicular pain in his legs, right significantly worse than left. Pain began in earnest five years ago, but has been worsening for the past two years. Pt has a very complicated history of interventions for his low back , including a lamiectomy, and the implantation, and subsequent removal, of a spinal cord stimulator. Pt's SO notes the electrodes had begun to protrude through his skin, and so after having it put in during November,, it was removed June,. Pt notes there was minimal benefit from it anyway. Pt notes he has had three injections with minimal benefit, and that his laminectimy also provided no relief. Pt presents with extreme pain and difficulty with mobility, needing to use his SO for support during gait . Notes that she must help him most days getting out of bed and dressing because the pain has been so bad. Pt notes he used to work [place], and his pain is just an accumulation of years worth of being hard on his body. Pain can be as high as 7-9/10 when up walking around. Notes he was on Oxy for a long time, I finally stopped taking it, because they weren't doing any good. Pt's SO reports pt's sleep is frequently greatly disturbed due to pain, pt has to change positions every 30- 40 minutes. Treatment Goals Patient/Caregiver Goals Decrease pain, improve ability to walk without assistance from SO, improve ability to sleep PT-OP-C Subjective Start: 05/18/21 16:05 Freq: Status: Active Protocol: Document 07/14/21 16:00 DCW (Rec: 07/14/21 16:31 DCW [id number]) OP-PT Subjective Patient Comments Patient Comments Some days are better than others. I'm a little stiff today. Also notes that it's not getting worse, it's just constant. PT-OP-F Manual Assessment Start: 05/18/21 16:05 Freq: Status: Active Protocol: Document 05/18/21 15:15 DCW (Rec: 05/18/21 17:25 DCW [id number]) Manual Assessments Soft Tissue Assessment Soft Tissue Mobility Assessment Moderate tone with tenderness to palpation 2/4: pain with wincing along bilateral lumbar paraspinals, bilateral QL Severe tone with tenderness to palpation 3/4: wincing and withdraw along bilateral piriformis, R>L Joint Mobility Assessment Joint Mobility Assessment Significant limitations to lumbar mobility secondary to multiple surgical interventions PT-OP-J Posture/Palpation/Skin Start: 05/18/21 16:05 Freq: Status: Active Protocol: Document 05/18/21 15:15 DCW (Rec: 05/18/21 17:25 DCW [id number]) Posture Evaluation Position Standing Evaluation View Lateral L-Spine Posture Flattened,Decreased Lordosis Pelvis Posture Posterior Tilted Weight Distribution Decreased Wt.Bear on (R) PT-OP-K Range of Motion Start: 05/18/21 16:05 Freq: Status: Active Protocol: Document 05/18/21 15:15 DCW (Rec: 05/18/21 17:25 DCW [id number]) Lumbar Spine Range of Motion Lumbar Spine Active Degrees Testing Position Sitting Flexion 0 Extension 0 ROM Limitations Bony Restriction,Muscle Tone, Pain PT-OP-L Special Tests Start: 05/18/21 16:05 Freq: Status: Active Protocol: Document 05/18/21 15:15 DCW (Rec: 05/18/21 17:25 DCW [id number]) Special Tests Lumbar Spine Special Tests Lateral SI compression Test Results Negative OLGA LIDIA Test Results Negative Straight Leg Raise Test Results Hamstring tightness, 45? bilaterally Slump Test Results C/o Hamstring tightness bilaterally Manual Traction Test Results Maybe mild improvement A-P Shearing Test Results Negative Hip Special Tests Piriformis Test Results Strongly positive R>L PT-OP-Q Treatments Start: 05/18/21 16:05 Freq: Status: Active Protocol: Document 07/14/21 16:00 DCW (Rec: 07/14/21 16:31 DCW [id number]) Therapeutic Exercises Supine Exercises 2 Supine Exercise Name Hamstring stretch Side bilateral 1 Supine Exercise Name Piriformis stretch - Figure-4, knee to opposite shoulder Side bilateral Manual Therapy Treatment Soft Tissue Mobilization 1 Body Location R Piriformis Mobilization Type Strumming,Sustained Pressure, Trigger Point Release Intensity/Depth Deep Body Position Sidelying PT-OP-R Modalities Start: 05/18/21 16:05 Freq: Status: Active Protocol: Document 05/24/21 16:00 DCW (Rec: 05/24/21 16:40 DCW [id number]) Electric Stimulation Electric Stimulation Interferential Current (IFC) Body Location Low back Duration (Minutes) 15 Intensity 29 Cycle Continuous Patient Position Hooklying Combined With Heat/Cold Hot Pack PT-OP-T Assessment and Plan Start: 05/18/21 16:05 Freq: Status: Active Protocol: Document 07/14/21 16:00 DCW (Rec: 07/14/21 16:31 DCW [id number]) Physical Therapy Assessment Impairments Impairments Activity Tolerance,Functional Activities,Functional Mobility ,Pain,Posture,ROM,Soft Tissue Mobility,Strength,Tone Goals Three Impairment Pt requires support from SO during ambulation Mcfp Goal (LTG) Pt to ambulate >800' during 6MWT without assistance LTG Duration 08/16/21 Two Impairment Significant sleep disturbances due to pain Mcfp Goal (LTG) Pt to report waking up only 2x /night for three consecutive nights due to back/leg pain LTG Duration 08/16/21 One Impairment Pt does not have an appropriate home exercise program Short Term Goal (STG) Pt to be independent and compliant with an appropriate HEP STG Duration 06/18/21 Assessment Summary Assessment Optimistic that pt has not had a decline after not having therapy over the last two week . Left side still doing very well. Physical Therapy Plan Frequency and Duration Frequency of Treatment 2x/Week Duration of Treatment Three months Plan of Care Start Date 05/18/21 Plan of Care End Date 08/16/21 Therapeutic Interventions Therapeutic Interventions Aquatic Therapy,Gait Training, Home Exercise Program,Joint Mobilizations,Manual Therapy, Neuromuscular Re-education, Patient/Caregiver Education, Self-Care/Home Management,Soft Tissue Mobilization, Therapeutic Activities, Therapeutic Exercises Modalities Cold Pack/Ice Massage,Electric Stimulation,Hot Packs, Traction- Mechanical Next Visit Focus/Plan Next Note Type Treatment Note Next Visit Plan STM, Stretching, E-stim, trunk mobility
--- NOTE | 2021-07-21 16:30 | PT.OTN ---
Current Diagnoses Lesion of sciatic nerve, bilateral lower limbs (07/21/21) Pain in right hip (07/21/21) Pain in left hip (07/21/21) Stiffness of right hip, not elsewhere classified (07/21/21) Stiffness of left hip, not elsewhere classified (07/21/21) Stiffness of other specified joint, not elsewhere classified (07/21/21) Intervertebral disc disorders with radiculopathy, lumbar region (07/21/21) Physical Therapy Treatment Note PT-OP-A Visit Information Start: 05/18/21 16:05 Freq: Status: Active Protocol: Document 07/21/21 16:00 DCW (Rec: 07/21/21 16:30 DCW [id number]) Out-Patient Physical Therapy Visit Information Visit Information Visit Type Treatment Note Visit Start Time 16:00 Visit Stop Time 16:30 Total Visit Minutes 30 Visit Number 12 Number of ELECTRICAL AND INSTRUMENT MECHANIC Visits 0 Evaluation Information Evaluation Date 05/18/21 PT-OP-B Current Condition Start: 05/18/21 16:05 Freq: Status: Active Protocol: Document 05/18/21 15:15 DCW (Rec: 05/18/21 17:25 DCW [id number]) Current Condition History of Current Condition Onset Date ~5 year history Current Complaints Low back pain, posterior hip pain, radicular leg pain History of Current Condition Pt is a 61 year old male presenting to skilled therapy with complaints of worsening radicular pain in his legs, right significantly worse than left. Pain began in earnest five years ago, but has been worsening for the past two years. Pt has a very complicated history of interventions for his low back , including a lamiectomy, and the implantation, and subsequent removal, of a spinal cord stimulator. Pt's SO notes the electrodes had begun to protrude through his skin, and so after having it put in during November,, it was removed June,. Pt notes there was minimal benefit from it anyway. Pt notes he has had three injections with minimal benefit, and that his laminectimy also provided no relief. Pt presents with extreme pain and difficulty with mobility, needing to use his SO for support during gait . Notes that she must help him most days getting out of bed and dressing because the pain has been so bad. Pt notes he used to work [place], and his pain is just an accumulation of years worth of being hard on his body. Pain can be as high as 7-9/10 when up walking around. Notes he was on Oxy for a long time, I finally stopped taking it, because they weren't doing any good. Pt's SO reports pt's sleep is frequently greatly disturbed due to pain, pt has to change positions every 30- 40 minutes. Treatment Goals Patient/Caregiver Goals Decrease pain, improve ability to walk without assistance from SO, improve ability to sleep PT-OP-C Subjective Start: 05/18/21 16:05 Freq: Status: Active Protocol: Document 07/21/21 16:00 DCW (Rec: 07/21/21 16:30 DCW [id number]) OP-PT Subjective Patient Comments Patient Comments Pt notes his left side is doing well. PT-OP-F Manual Assessment Start: 05/18/21 16:05 Freq: Status: Active Protocol: Document 05/18/21 15:15 DCW (Rec: 05/18/21 17:25 DCW [id number]) Manual Assessments Soft Tissue Assessment Soft Tissue Mobility Assessment Moderate tone with tenderness to palpation 2/4: pain with wincing along bilateral lumbar paraspinals, bilateral QL Severe tone with tenderness to palpation 3/4: wincing and withdraw along bilateral piriformis, R>L Joint Mobility Assessment Joint Mobility Assessment Significant limitations to lumbar mobility secondary to multiple surgical interventions PT-OP-J Posture/Palpation/Skin Start: 05/18/21 16:05 Freq: Status: Active Protocol: Document 05/18/21 15:15 DCW (Rec: 05/18/21 17:25 DCW [id number]) Posture Evaluation Position Standing Evaluation View Lateral L-Spine Posture Flattened,Decreased Lordosis Pelvis Posture Posterior Tilted Weight Distribution Decreased Wt.Bear on (R) PT-OP-K Range of Motion Start: 05/18/21 16:05 Freq: Status: Active Protocol: Document 05/18/21 15:15 DCW (Rec: 05/18/21 17:25 DCW [id number]) Lumbar Spine Range of Motion Lumbar Spine Active Degrees Testing Position Sitting Flexion 0 Extension 0 ROM Limitations Bony Restriction,Muscle Tone, Pain PT-OP-L Special Tests Start: 05/18/21 16:05 Freq: Status: Active Protocol: Document 05/18/21 15:15 DCW (Rec: 05/18/21 17:25 DCW [id number]) Special Tests Lumbar Spine Special Tests Lateral SI compression Test Results Negative OLGA LIDIA Test Results Negative Straight Leg Raise Test Results Hamstring tightness, 45? bilaterally Slump Test Results C/o Hamstring tightness bilaterally Manual Traction Test Results Maybe mild improvement A-P Shearing Test Results Negative Hip Special Tests Piriformis Test Results Strongly positive R>L PT-OP-Q Treatments Start: 05/18/21 16:05 Freq: Status: Active Protocol: Document 07/21/21 16:00 DCW (Rec: 07/21/21 16:30 DCW [id number]) Therapeutic Exercises Supine Exercises 2 Supine Exercise Name Hamstring stretch Side bilateral 1 Supine Exercise Name Piriformis stretch - Figure-4, knee to opposite shoulder Side bilateral Manual Therapy Treatment Soft Tissue Mobilization 1 Body Location R Piriformis Mobilization Type Strumming,Sustained Pressure, Trigger Point Release Intensity/Depth Deep Body Position Sidelying PT-OP-R Modalities Start: 05/18/21 16:05 Freq: Status: Active Protocol: Document 05/24/21 16:00 DCW (Rec: 05/24/21 16:40 DCW [id number]) Electric Stimulation Electric Stimulation Interferential Current (IFC) Body Location Low back Duration (Minutes) 15 Intensity 29 Cycle Continuous Patient Position Hooklying Combined With Heat/Cold Hot Pack PT-OP-T Assessment and Plan Start: 05/18/21 16:05 Freq: Status: Active Protocol: Document 07/21/21 16:00 DCW (Rec: 07/21/21 16:30 DCW [id number]) Physical Therapy Assessment Impairments Impairments Activity Tolerance,Functional Activities,Functional Mobility ,Pain,Posture,ROM,Soft Tissue Mobility,Strength,Tone Goals Three Impairment Pt requires support from SO during ambulation Martial Arts Instructor Goal (LTG) Pt to ambulate >800' during 6MWT without assistance LTG Duration 08/16/21 Two Impairment Significant sleep disturbances due to pain Fpc Goal (LTG) Pt to report waking up only 2x /night for three consecutive nights due to back/leg pain LTG Duration 08/16/21 One Impairment Pt does not have an appropriate home exercise program Short Term Goal (STG) Pt to be independent and compliant with an appropriate HEP STG Duration 06/18/21 Assessment Summary Assessment Pt showing some improvement with gait, small amounts of improvement with pain levels and mobility. Continues to be fairly significantly limited with his day to day activities , increased pain with anything more strenuous than walking Physical Therapy Plan Frequency and Duration Frequency of Treatment 2x/Week Duration of Treatment Three months Plan of Care Start Date 05/18/21 Plan of Care End Date 08/16/21 Therapeutic Interventions Therapeutic Interventions Aquatic Therapy,Gait Training, Home Exercise Program,Joint Mobilizations,Manual Therapy, Neuromuscular Re-education, Patient/Caregiver Education, Self-Care/Home Management,Soft Tissue Mobilization, Therapeutic Activities, Therapeutic Exercises Modalities Cold Pack/Ice Massage,Electric Stimulation,Hot Packs, Traction- Mechanical Next Visit Focus/Plan Next Note Type Treatment Note Next Visit Plan STM, Stretching, E-stim, trunk mobility
--- NOTE | 2022-03-22 16:52 | PT.OPDS ---
Current Diagnoses Lesion of sciatic nerve, bilateral lower limbs (07/21/21) Pain in right hip (07/21/21) Pain in left hip (07/21/21) Stiffness of right hip, not elsewhere classified (07/21/21) Stiffness of left hip, not elsewhere classified (07/21/21) Stiffness of other specified joint, not elsewhere classified (07/21/21) Intervertebral disc disorders with radiculopathy, lumbar region (07/21/21) Visit Care Team Role Provider Type Olga Lidia Hernández PA-C Attending Provider Non-Staff Primary Care Provider Referring Provider Specialty: [facility] [place], [address] Email: Visit Number Visit Number 12 Discharge Summary PT-OP-B Current Condition Start: 05/18/21 16:05 Freq: Status: Active Protocol: Document 05/18/21 15:15 DCW (Rec: 05/18/21 17:25 DCW [id number]) Current Condition History of Current Condition Onset Date ~5 year history Current Complaints Low back pain, posterior hip pain, radicular leg pain History of Current Condition Pt is a 61 year old male presenting to skilled therapy with complaints of worsening radicular pain in his legs, right significantly worse than left. Pain began in earnest five years ago, but has been worsening for the past two years. Pt has a very complicated history of interventions for his low back , including a lamiectomy, and the implantation, and subsequent removal, of a spinal cord stimulator. Pt's SO notes the electrodes had begun to protrude through his skin, and so after having it put in during November,, it was removed June,. Pt notes there was minimal benefit from it anyway. Pt notes he has had three injections with minimal benefit, and that his laminectimy also provided no relief. Pt presents with extreme pain and difficulty with mobility, needing to use his SO for support during gait . Notes that she must help him most days getting out of bed and dressing because the pain has been so bad. Pt notes he used to work up in the [place], and his pain is just an accumulation of years worth of being hard on his body. Pain can be as high as 7-9/10 when up walking around. Notes he was on Oxy for a long time, I finally stopped taking it, because they weren't doing any good. Pt's SO reports pt's sleep is frequently greatly disturbed due to pain, pt has to change positions every 30- 40 minutes. Treatment Goals Patient/Caregiver Goals Decrease pain, improve ability to walk without assistance from SO, improve ability to sleep PT-OP-C Subjective Start: 05/18/21 16:05 Freq: Status: Active Protocol: Document 07/21/21 16:00 DCW (Rec: 07/21/21 16:30 DCW [id number]) OP-PT Subjective Patient Comments Patient Comments Pt notes his left side is doing well. PT-OP-F Manual Assessment Start: 05/18/21 16:05 Freq: Status: Active Protocol: Document 05/18/21 15:15 DCW (Rec: 05/18/21 17:25 DCW [id number]) Manual Assessments Soft Tissue Assessment Soft Tissue Mobility Assessment Moderate tone with tenderness to palpation 2/4: pain with wincing along bilateral lumbar paraspinals, bilateral QL Severe tone with tenderness to palpation 3/4: wincing and withdraw along bilateral piriformis, R>L Joint Mobility Assessment Joint Mobility Assessment Significant limitations to lumbar mobility secondary to multiple surgical interventions PT-OP-J Posture/Palpation/Skin Start: 05/18/21 16:05 Freq: Status: Active Protocol: Document 05/18/21 15:15 DCW (Rec: 05/18/21 17:25 DCW [id number]) Posture Evaluation Position Standing Evaluation View Lateral L-Spine Posture Flattened,Decreased Lordosis Pelvis Posture Posterior Tilted Weight Distribution Decreased Wt.Bear on (R) PT-OP-K Range of Motion Start: 05/18/21 16:05 Freq: Status: Active Protocol: Document 05/18/21 15:15 DCW (Rec: 05/18/21 17:25 DCW [id number]) Lumbar Spine Range of Motion Lumbar Spine Active Degrees Testing Position Sitting Flexion 0 Extension 0 ROM Limitations Bony Restriction,Muscle Tone, Pain PT-OP-L Special Tests Start: 05/18/21 16:05 Freq: Status: Active Protocol: Document 05/18/21 15:15 DCW (Rec: 05/18/21 17:25 DCW [id number]) Special Tests Lumbar Spine Special Tests Lateral SI compression Test Results Negative OLGA LIDIA Test Results Negative Straight Leg Raise Test Results Hamstring tightness, 45? bilaterally Slump Test Results C/o Hamstring tightness bilaterally Manual Traction Test Results Maybe mild improvement A-P Shearing Test Results Negative Hip Special Tests Piriformis Test Results Strongly positive R>L PT-OP-T Assessment and Plan Start: 05/18/21 16:05 Freq: Status: Active Protocol: Document 03/22/22 16:51 DCW (Rec: 03/22/22 16:52 DCW [id number]) Physical Therapy Assessment Assessment Summary Assessment Pt no-showed multiple appointments, never rescheduled. Pt has now not been seen in more than 7 months, will discharge from skilled therapy at this time. Physical Therapy Plan Discharge Physical Therapy Discharge Reasons No Longer Attending PT
== END 2022-03-24 10:55 | disposition home or self-care (01) ==
LOC: PHYS 16:00
PROVIDERS: PCP Physician Assistant Medical; Referring Provider Physician Assistant Medical; Visit Provider Physician Assistant Medical
DX: M51.16 Intervertebral disc disorders with radiculopathy, lumbar region (principal); G57.03 Lesion of sciatic nerve, bilateral lower limbs; M25.69 Stiffness of other specified joint, not elsewhere classified; M25.651 Stiffness of right hip, not elsewhere classified; M25.652 Stiffness of left hip, not elsewhere classified; M25.552 Pain in left hip; M25.551 Pain in right hip
CPT/HCPCS: 97014; 97110; 97140; 97162; G0283

== ENCOUNTER → 2022-06-28 13:37 | Outpatient (CLI) | payer OTHER, SELFPAY ==
--- NOTE | 2022-06-28 | DI.MRI.S_ITS ---
PROCEDURE: MR LUMBAR SPINE WO CON INDICATIONS: WEAKNESS IN BOTH LOWER EXTREMITIES TECHNIQUE: Noncontrast sagittal T1 spin echo and T2 fast echo, sagittal STIR, and T2 fast spin echo through the lumbar spine. In cases with scoliosis, additional coronal T2 fast spin echo may be performed. COMPARISON: Outside Film, MR, MR LUMBAR SPINE WITH/WITHOUT CONTRAST, 11/12/2020, 7:09. FINDINGS: Image quality: Excellent. Alignment and Curvature: There is normal bony alignment. Bone Marrow: Marrow is of normal overall signal. No acute vertebral body compression fractures. Spinal Cord: Conus medullaris terminates at the L1-L2 level. Visualized cord demonstrates normal signal and size. Paraspinous Soft Tissues: No paravertebral masses. T12-L1: No canal stenosis or foraminal stenosis. L1-L2: No canal stenosis or foraminal stenosis. L2-L3: Disc bulge. Facet hypertrophy. No canal stenosis or foraminal stenosis. L3-L4: Unchanged. Diffuse posterior disc bulge. Facet hypertrophy. Epidural lipomatosis. Mild canal stenosis. Far left lateral disc bulge or disc protrusion. L4-L5: Stable. Probable right hemilaminectomy. Diffuse disc bulge with left paracentral disc protrusion. Facet hypertrophy. Epidural lipomatosis. Kflz-ot-elscyddo canal stenosis. Moderate to severe right foraminal narrowing with a degree of right foraminal L4 nerve root impingement. Mild left foraminal narrowing. L5-S1: Stable findings. Disc bulge. Facet hypertrophy. Epidural lipomatosis. Mild canal stenosis. Moderate bilateral foraminal stenosis. IMPRESSION: 1. Stable findings. 2. Diffuse degenerative change. Multilevel facet arthropathy. 3. Multilevel canal stenosis is stable. It is [id number] at L4-L5, and mild at multiple other levels. 4. Multilevel foraminal narrowing as described above. It is noted to be moderate to severe on the right at L4-L5. Dictated by: Toribio Rubio M.D. on 06/28/2022 at 18:40 Approved by: Toribio Rubio M.D. on 06/28/2022 at 18:47
== END ==
PROVIDERS: PCP Physician Assistant Medical; Referring Provider Pain Medicine Pain Medicine; Visit Provider Pain Medicine Pain Medicine
DX: M47.816 Spondylosis without myelopathy or radiculopathy, lumbar region (principal); M47.817 Spondylosis without myelopathy or radiculopathy, lumbosacral region; R29.898 Other symptoms and signs involving the musculoskeletal system; M48.061 Spinal stenosis, lumbar region without neurogenic claudication; M48.07 Spinal stenosis, lumbosacral region
CPT/HCPCS: 72148